=== PATIENT | female | born 1950 | race Caucasian/White ===

== ENCOUNTER 2018-08-28 14:03 | Inpatient (IN) ==
[2018-08-28] MEDS ORDERED: Sod Chloride 0.9% Inj 1,000 ML IV.SIG ONE (15:21)
--- NOTE | 2018-08-28 15:27 | ED ---
HPI General Chief complaint: Nausea/Vomiting/Diarrhea Stated complaint: Diarrhea/abd pain x 1 week Time Seen by Provider: 08/28/18 15:16 Source: patient Mode of arrival: ambulatory Limitations: no limitations History of Present Illness HPI narrative: This 68-year-old female says she has been sick for the past week. She has been having abdominal pain which is crampy in nature and somewhat migratory. It seems to affect different parts of the abdomen. She has been having loose stools. She says the last night she was up all night with diarrhea. She has been able to take fluids well. She has had a cholecystectomy in the past. There is been no unusual travel. She is not aware of any fever. There has not been any blood in the stool. She does say that she was at a birthday [place] last week and she believes another person there may be have similar symptoms that she has not had a bowel movement since this morning Related Data Home Medications Medication Instructions Recorded Confirmed No Known Home Medications 08/28/18 08/28/18 Allergies Allergy/AdvReac Type Severity Reaction Status Date / Time Sulfa (Sulfonamide Allergy Intermediate rash Verified 08/28/18 14:07 Antibiotics) Review of Systems ROS: all other systems reviewed are negative [facility] Medical History Medical History Hypertension (Acute) No active medical problems (Acute) Surgical History Surgical History Hx of section (Acute) Hx of cholecystectomy (Acute) Family History Family History Other CVA (cerebral vascular accident) Social History Social History Substance History: No History of Abuse Second Hand Smoke Exposure: No Smoking Status: Never smoker How Often Do You Have a Drink Containing Alcohol: Monthly or less Recent Travel in [facility] within the Last 8 Weeks: No Recent Out of Country Travel within the Last 8 Weeks: No Immunization History Tetanus Immunization: Unsure Exam Narrative Exam Narrative: GENERAL: Well-developed female SKIN: Focused skin assessment warm/dry. HEAD: Atraumatic. Normocephalic. EYES: Pupils equal and round. No scleral icterus. No injection or drainage. ENT: No nasal bleeding or discharge. Mucous membranes pink and moist. NECK: Trachea midline. No JVD. CARDIOVASCULAR: Regular rate and rhythm. No murmur appreciated. RESPIRATORY: No accessory muscle use. Clear to auscultation. Breath sounds equal bilaterally. GASTROINTESTINAL: Abdomen soft, there is mild diffuse tenderness without guarding or rigidity, nondistended. No abnormal masses are felt hepatic and splenic margins not palpable. MUSCULOSKELETAL: No obvious deformities. No clubbing. No cyanosis. No edema. NEUROLOGICAL: Awake and alert. No obvious cranial nerve deficits. Motor grossly within normal limits. Normal speech. PSYCHIATRIC: Appropriate mood and affect; insight and judgment normal. Course Initial Documented Vital Signs Temperature 98.7 F 08/28/18 14:07 Pulse Rate 135 H 08/28/18 14:07 Respiratory Rate 18 08/28/18 14:07 Blood Pressure 110/68 08/28/18 14:07 Pulse Oximetry 98 08/28/18 14:07 Last Documented Vital Signs Temperature 97.8 F 08/30/18 16:00 Pulse Rate 84 08/30/18 16:00 Respiratory Rate 17 08/30/18 16:00 Blood Pressure 171/100 H 08/30/18 16:00 Pulse Oximetry 100 08/30/18 16:00 Medical Decision Making MDM Narrative Medical decision making narrative: Symptoms have been ongoing for a week so workup including CT has been ordered. 1640 5 PM. Patient was seen by ED physician and signed out to me. Patient started having abdominal pain with nausea vomiting diarrhea for the past week. Patient took Gas-X without much relief. Patient was found to have hypokalemia and hypo-natremia. KCl replacement given IV n.p.o. Normal saline solution IV given. NG tube with low suction. Patient was admitted to medical service with consultation to surgical service. UA positive for WBC. Rocephin 1 g IV given. Medical Screen Exam Complete: Yes Emergency Medical Condition: Yes Differential Diagnosis Differential Diagnosis: Differential includes enteritis, colitis, diverticulitis Lab Data Lab results reviewed: Yes I reviewed the patient's lab results. Result diagrams: 08/30/18 07:42 08/30/18 17:00 Lab Results 08/28/18 08/28/18 08/28/18 Range/Units 14:50 14:50 16:00 CBC w Diff Auto diff final WBC 18.6 H (4.0-11.0) th/mm3 RBC 4.48 (4.00-5.30) mil/mm3 Hgb 14.1 (11.6-15.3) gm/dL Hct 40.8 (35.0-46.0) % MCV 90.9 (80.0-100.0) fL MCH 31.3 (27.0-34.0) pg MCHC 34.5 (32.0-36.0) % RDW 12.2 (11.6-17.2) % Plt Count 506 H (150-450) th/mm3 MPV 6.8 L (7.0-11.0) fL Neut % (Auto) 92.7 H (16.0-70.0) % Lymph % (Auto) 1.8 L (9.0-44.0) % Ashe % (Auto) 5.2 (0.0-8.0) % Eos % (Auto) 0.2 (0.0-4.0) % Baso % (Auto) 0.1 (0.0-2.0) % Neut # (Auto) 17.3 H (1.8-7.7) th/mm3 Lymph # (Auto) 0.3 L (1.0-4.8) th/mm3 Ashe # (Auto) 1.0 H (0.0-0.9) th/mm3 Eos # (Auto) 0.0 (0.0-0.4) th/mm3 Baso # (Auto) 0.0 (0.0-0.2) th/mm3 WBC Differential . Differential Comment . Sodium 113 L* (136-145) meq/L Potassium 2.2 L* (3.5-5.1) meq/L Chloride 75 L (98-107) meq/L Carbon Dioxide 25.6 (21.0-32.0) meq/L Anion Gap 12 (5-15) meq/L BUN 15 (7-18) mg/dL Creatinine 0.71 (0.50-1.00) mg/dL Estimated GFR 82 L (>89) mL/min Random Glucose 163 H (74-106) mg/dL Calcium 7.9 L (8.5-10.1) mg/dL Prot Corrected Calcium (8.5-10.1) mg/dL Phosphorus (2.5-4.9) mg/dL Magnesium (1.5-2.5) mg/dL Total Bilirubin 0.9 (0.2-1.0) mg/dL AST 25 (15-37) U/L ALT 40 (10-53) U/L Alkaline Phosphatase 95 (45-117) U/L Total Protein 7.2 (6.4-8.2) g/dL Albumin 3.1 L (3.4-5.0) g/dL Lipase 319 (73-393) U/L Urine Color Yellow (Yellw/Straw) Urine Clarity Clear (Clear) Urine pH 6.0 (5.0-8.5) Ur Specific Childs Less/equal 1.005 (1.002-1.035) Urine Protein Negative (Neg-Trace) mg/dL Urine Glucose (UA) 100 H (Negative) mg/dL Urine Ketones Trace H (Negative) mg/dL Urine Occult Blood Trace (Negative) Urine Nitrate Positive H (Negative) Urine Bilirubin Negative (Negative) Urine Urobilinogen 0.2 (Less than 2) mg/dL Ur Leukocyte Esterase Small H (Negative) Urine WBC 6-8 H (0-5) /hpf Ur Squamous Epith Cells 0-5 (0-5) /hpf Urine Bacteria Many H (None) /hpf Micro UA Comment Culture indicated Ur Microscopic Review Microscopic reviewed Urine Culture Comments Culture indicated Ur Random Sodium meq/L Stl C.difficile DNA Amp (Negative) St C. diff Tox Epid 027 (Negative) 08/28/18 08/28/18 08/29/18 Range/Units 20:18 20:18 00:30 CBC w Diff WBC (4.0-11.0) th/mm3 RBC (4.00-5.30) mil/mm3 Hgb (11.6-15.3) gm/dL Hct (35.0-46.0) % MCV (80.0-100.0) fL MCH (27.0-34.0) pg MCHC (32.0-36.0) % RDW (11.6-17.2) % Plt Count (150-450) th/mm3 MPV (7.0-11.0) fL Neut % (Auto) (16.0-70.0) % Lymph % (Auto) (9.0-44.0) % Ashe % (Auto) (0.0-8.0) % Eos % (Auto) (0.0-4.0) % Baso % (Auto) (0.0-2.0) % Neut # (Auto) (1.8-7.7) th/mm3 Lymph # (Auto) (1.0-4.8) th/mm3 Ashe # (Auto) (0.0-0.9) th/mm3 Eos # (Auto) (0.0-0.4) th/mm3 Baso # (Auto) (0.0-0.2) th/mm3 WBC Differential Differential Comment Sodium 120 L* 122 L* (136-145) meq/L Potassium 2.7 L* 2.9 L* (3.5-5.1) meq/L Chloride 84 L D 88 L (98-107) meq/L Carbon Dioxide 26.0 25.0 (21.0-32.0) meq/L Anion Gap 10 9 (5-15) meq/L BUN 10 9 (7-18) mg/dL Creatinine 0.56 0.49 L (0.50-1.00) mg/dL Estimated GFR Greater than 89 Greater than 89 (>89) mL/min Random Glucose 129 H 116 H (74-106) mg/dL Calcium 7.2 L* 7.4 L* (8.5-10.1) mg/dL Prot Corrected Calcium 7.7 L 8.1 L (8.5-10.1) mg/dL Phosphorus (2.5-4.9) mg/dL Magnesium 1.9 (1.5-2.5) mg/dL Total Bilirubin (0.2-1.0) mg/dL AST (15-37) U/L ALT (10-53) U/L Alkaline Phosphatase (45-117) U/L Total Protein 6.1 L D 5.9 L (6.4-8.2) g/dL Albumin (3.4-5.0) g/dL Lipase (73-393) U/L Urine Color (Yellw/Straw) Urine Clarity (Clear) Urine pH (5.0-8.5) Ur Specific Childs (1.002-1.035) Urine Protein (Neg-Trace) mg/dL Urine Glucose (UA) (Negative) mg/dL Urine Ketones (Negative) mg/dL Urine Occult Blood (Negative) Urine Nitrate (Negative) Urine Bilirubin (Negative) Urine Urobilinogen (Less than 2) mg/dL Ur Leukocyte Esterase (Negative) Urine WBC (0-5) /hpf Ur Squamous Epith Cells (0-5) /hpf Urine Bacteria (None) /hpf Micro UA Comment Ur Microscopic Review Urine Culture Comments Ur Random Sodium meq/L Stl C.difficile DNA Amp (Negative) St C. diff Tox Epid 027 (Negative) 08/29/18 08/29/18 08/29/18 Range/Units 01:08 07:00 07:00 CBC w Diff Auto diff final WBC 8.2 D (4.0-11.0) th/mm3 RBC 3.76 L (4.00-5.30) mil/mm3 Hgb 11.5 L D (11.6-15.3) gm/dL Hct 34.3 L (35.0-46.0) % MCV 91.3 (80.0-100.0) fL MCH 30.7 (27.0-34.0) pg MCHC 33.6 (32.0-36.0) % RDW 12.3 (11.6-17.2) % Plt Count 328 D (150-450) th/mm3 MPV 6.6 L (7.0-11.0) fL Neut % (Auto) 86.5 H (16.0-70.0) % Lymph % (Auto) 5.9 L (9.0-44.0) % Ashe % (Auto) 6.2 (0.0-8.0) % Eos % (Auto) 1.2 (0.0-4.0) % Baso % (Auto) 0.2 (0.0-2.0) % Neut # (Auto) 7.1 (1.8-7.7) th/mm3 Lymph # (Auto) 0.5 L (1.0-4.8) th/mm3 Ashe # (Auto) 0.5 (0.0-0.9) th/mm3 Eos # (Auto) 0.1 (0.0-0.4) th/mm3 Baso # (Auto) 0.0 (0.0-0.2) th/mm3 WBC Differential . Differential Comment . Sodium 125 L 125 L (136-145) meq/L Potassium 3.7 D 2.7 L* D (3.5-5.1) meq/L Chloride 92 L 90 L (98-107) meq/L Carbon Dioxide 24.5 24.4 (21.0-32.0) meq/L Anion Gap 9 11 (5-15) meq/L BUN 8 9 (7-18) mg/dL Creatinine 0.36 L 0.40 L (0.50-1.00) mg/dL Estimated GFR Greater than 89 Greater than 89 (>89) mL/min Random Glucose 115 H 104 (74-106) mg/dL Calcium 7.1 L* 7.3 L* (8.5-10.1) mg/dL Prot Corrected Calcium 7.8 L 8.1 L (8.5-10.1) mg/dL Phosphorus (2.5-4.9) mg/dL Magnesium (1.5-2.5) mg/dL Total Bilirubin 0.4 (0.2-1.0) mg/dL AST 15 (15-37) U/L ALT 28 (10-53) U/L Alkaline Phosphatase 69 (45-117) U/L Total Protein 5.7 L 5.6 L (6.4-8.2) g/dL Albumin 2.4 L D (3.4-5.0) g/dL Lipase (73-393) U/L Urine Color (Yellw/Straw) Urine Clarity (Clear) Urine pH (5.0-8.5) Ur Specific Childs (1.002-1.035) Urine Protein (Neg-Trace) mg/dL Urine Glucose (UA) (Negative) mg/dL Urine Ketones (Negative) mg/dL Urine Occult Blood (Negative) Urine Nitrate (Negative) Urine Bilirubin (Negative) Urine Urobilinogen (Less than 2) mg/dL Ur Leukocyte Esterase (Negative) Urine WBC (0-5) /hpf Ur Squamous Epith Cells (0-5) /hpf Urine Bacteria (None) /hpf Micro UA Comment Ur Microscopic Review Urine Culture Comments Ur Random Sodium meq/L Stl C.difficile DNA Amp (Negative) St C. diff Tox Epid 027 (Negative) 08/29/18 08/29/18 08/29/18 Range/Units 07:18 09:15 11:43 CBC w Diff WBC (4.0-11.0) th/mm3 RBC (4.00-5.30) mil/mm3 Hgb (11.6-15.3) gm/dL Hct (35.0-46.0) % MCV (80.0-100.0) fL MCH (27.0-34.0) pg MCHC (32.0-36.0) % RDW (11.6-17.2) % Plt Count (150-450) th/mm3 MPV (7.0-11.0) fL Neut % (Auto) (16.0-70.0) % Lymph % (Auto) (9.0-44.0) % Ashe % (Auto) (0.0-8.0) % Eos % (Auto) (0.0-4.0) % Baso % (Auto) (0.0-2.0) % Neut # (Auto) (1.8-7.7) th/mm3 Lymph # (Auto) (1.0-4.8) th/mm3 Ashe # (Auto) (0.0-0.9) th/mm3 Eos # (Auto) (0.0-0.4) th/mm3 Baso # (Auto) (0.0-0.2) th/mm3 WBC Differential Differential Comment Sodium Cancelled 125 L (136-145) meq/L Potassium Cancelled 2.9 L* (3.5-5.1) meq/L Chloride Cancelled 90 L (98-107) meq/L Carbon Dioxide Cancelled 26.8 (21.0-32.0) meq/L Anion Gap Cancelled 8 (5-15) meq/L BUN Cancelled 9 (7-18) mg/dL Creatinine Cancelled 0.40 L (0.50-1.00) mg/dL Estimated GFR Cancelled Greater than 89 (>89) mL/min Random Glucose Cancelled 102 (74-106) mg/dL Calcium Cancelled 7.6 L (8.5-10.1) mg/dL Prot Corrected Calcium (8.5-10.1) mg/dL Phosphorus 1.6 L (2.5-4.9) mg/dL Magnesium 2.3 (1.5-2.5) mg/dL Total Bilirubin (0.2-1.0) mg/dL AST (15-37) U/L ALT (10-53) U/L Alkaline Phosphatase (45-117) U/L Total Protein (6.4-8.2) g/dL Albumin (3.4-5.0) g/dL Lipase (73-393) U/L Urine Color (Yellw/Straw) Urine Clarity (Clear) Urine pH (5.0-8.5) Ur Specific Childs (1.002-1.035) Urine Protein (Neg-Trace) mg/dL Urine Glucose (UA) (Negative) mg/dL Urine Ketones (Negative) mg/dL Urine Occult Blood (Negative) Urine Nitrate (Negative) Urine Bilirubin (Negative) Urine Urobilinogen (Less than 2) mg/dL Ur Leukocyte Esterase (Negative) Urine WBC (0-5) /hpf Ur Squamous Epith Cells (0-5) /hpf Urine Bacteria (None) /hpf Micro UA Comment Ur Microscopic Review Urine Culture Comments Ur Random Sodium meq/L Stl C.difficile DNA Amp Negative (Negative) St C. diff Tox Epid 027 Negative (Negative) 08/29/18 08/29/18 08/30/18 Range/Units 15:00 19:30 07:42 CBC w Diff WBC (4.0-11.0) th/mm3 RBC (4.00-5.30) mil/mm3 Hgb (11.6-15.3) gm/dL Hct (35.0-46.0) % MCV (80.0-100.0) fL MCH (27.0-34.0) pg MCHC (32.0-36.0) % RDW (11.6-17.2) % Plt Count (150-450) th/mm3 MPV (7.0-11.0) fL Neut % (Auto) (16.0-70.0) % Lymph % (Auto) (9.0-44.0) % Ashe % (Auto) (0.0-8.0) % Eos % (Auto) (0.0-4.0) % Baso % (Auto) (0.0-2.0) % Neut # (Auto) (1.8-7.7) th/mm3 Lymph # (Auto) (1.0-4.8) th/mm3 Ashe # (Auto) (0.0-0.9) th/mm3 Eos # (Auto) (0.0-0.4) th/mm3 Baso # (Auto) (0.0-0.2) th/mm3 WBC Differential Differential Comment Sodium 125 L 124 L* (136-145) meq/L Potassium 3.5 3.5 (3.5-5.1) meq/L Chloride 92 L 92 L (98-107) meq/L Carbon Dioxide 24.4 22.9 (21.0-32.0) meq/L Anion Gap 9 9 (5-15) meq/L BUN 8 7 (7-18) mg/dL Creatinine 0.41 L 0.38 L (0.50-1.00) mg/dL Estimated GFR Greater than 89 Greater than 89 (>89) mL/min Random Glucose 111 H 111 H (74-106) mg/dL Calcium 7.6 L 7.6 L (8.5-10.1) mg/dL Prot Corrected Calcium (8.5-10.1) mg/dL Phosphorus 1.4 L (2.5-4.9) mg/dL Magnesium 2.0 (1.5-2.5) mg/dL Total Bilirubin (0.2-1.0) mg/dL AST (15-37) U/L ALT (10-53) U/L Alkaline Phosphatase (45-117) U/L Total Protein (6.4-8.2) g/dL Albumin (3.4-5.0) g/dL Lipase (73-393) U/L Urine Color (Yellw/Straw) Urine Clarity (Clear) Urine pH (5.0-8.5) Ur Specific Childs (1.002-1.035) Urine Protein (Neg-Trace) mg/dL Urine Glucose (UA) (Negative) mg/dL Urine Ketones (Negative) mg/dL Urine Occult Blood (Negative) Urine Nitrate (Negative) Urine Bilirubin (Negative) Urine Urobilinogen (Less than 2) mg/dL Ur Leukocyte Esterase (Negative) Urine WBC (0-5) /hpf Ur Squamous Epith Cells (0-5) /hpf Urine Bacteria (None) /hpf Micro UA Comment Ur Microscopic Review Urine Culture Comments Ur Random Sodium 69 meq/L Stl C.difficile DNA Amp (Negative) St C. diff Tox Epid 027 (Negative) 08/30/18 08/30/18 Range/Units 07:42 17:00 CBC w Diff Auto diff final WBC 8.0 (4.0-11.0) th/mm3 RBC 3.58 L (4.00-5.30) mil/mm3 Hgb 11.4 L (11.6-15.3) gm/dL Hct 31.6 L (35.0-46.0) % MCV 88.3 (80.0-100.0) fL MCH 31.7 (27.0-34.0) pg MCHC 35.9 (32.0-36.0) % RDW 12.6 (11.6-17.2) % Plt Count 332 (150-450) th/mm3 MPV 6.5 L (7.0-11.0) fL Neut % (Auto) 79.7 H (16.0-70.0) % Lymph % (Auto) 7.0 L (9.0-44.0) % Ashe % (Auto) 10.0 H (0.0-8.0) % Eos % (Auto) 1.5 (0.0-4.0) % Baso % (Auto) 1.8 (0.0-2.0) % Neut # (Auto) 6.4 (1.8-7.7) th/mm3 Lymph # (Auto) 0.6 L (1.0-4.8) th/mm3 Ashe # (Auto) 0.8 (0.0-0.9) th/mm3 Eos # (Auto) 0.1 (0.0-0.4) th/mm3 Baso # (Auto) 0.1 (0.0-0.2) th/mm3 WBC Differential . Differential Comment . Sodium 130 L (136-145) meq/L Potassium 3.9 (3.5-5.1) meq/L Chloride 95 L (98-107) meq/L Carbon Dioxide 23.6 (21.0-32.0) meq/L Anion Gap 11 (5-15) meq/L BUN 9 (7-18) mg/dL Creatinine 0.42 L (0.50-1.00) mg/dL Estimated GFR Greater than 89 (>89) mL/min Random Glucose 132 H (74-106) mg/dL Calcium 8.1 L (8.5-10.1) mg/dL Prot Corrected Calcium (8.5-10.1) mg/dL Phosphorus (2.5-4.9) mg/dL Magnesium (1.5-2.5) mg/dL Total Bilirubin (0.2-1.0) mg/dL AST (15-37) U/L ALT (10-53) U/L Alkaline Phosphatase (45-117) U/L Total Protein (6.4-8.2) g/dL Albumin (3.4-5.0) g/dL Lipase (73-393) U/L Urine Color (Yellw/Straw) Urine Clarity (Clear) Urine pH (5.0-8.5) Ur Specific Childs (1.002-1.035) Urine Protein (Neg-Trace) mg/dL Urine Glucose (UA) (Negative) mg/dL Urine Ketones (Negative) mg/dL Urine Occult Blood (Negative) Urine Nitrate (Negative) Urine Bilirubin (Negative) Urine Urobilinogen (Less than 2) mg/dL Ur Leukocyte Esterase (Negative) Urine WBC (0-5) /hpf Ur Squamous Epith Cells (0-5) /hpf Urine Bacteria (None) /hpf Micro UA Comment Ur Microscopic Review Urine Culture Comments Ur Random Sodium meq/L Stl C.difficile DNA Amp (Negative) St C. diff Tox Epid 027 (Negative) Imaging Data Radiologist's impression: Abdomen/Pelvis CT 08/28/18 15:21 CONCLUSION: 1. Abnormal bowel gas pattern of concern for distal small bowel obstruction. No transition zone is identified. 2. Mild to moderate diverticulosis. 3. Status post cholecystectomy. 4. Small simple cysts in the kidneys. Chest X-Ray 08/29/18 16:49 CONCLUSION: No acute cardiopulmonary disease. Chest X-Ray 08/30/18 00:00 CONCLUSION: Nasogastric tube is not across the GE junction. Tube appears to be the proximal esophagus. Small Bowel X-Ray 08/30/18 00:00 CONCLUSION: Persistent abnormally dilated small bowel and the contrast did not reach the colon by 8 hours. These findings along with the findings on recent CT are characteristic of the distal small bowel obstruction. One could consider obtaining additional follow-up x-ray tomorrow morning to evaluate for progression of contrast into the colon. Discharge Plan Discharge Disposition Patient Disposition: 30 Still Patient Discharge Details Diagnosis: Small bowel obstruction, Acute hyponatremia, Acute hypokalemia, Acute UTI Physicians Team ED Provider: Shaheen Bettencourt Primary Care Provider: Primary Care Physici,Shagufta Attending Provider: Kevan Ashby Other Providers: Elias Car Status ED Status: Left Department Discharge Information Discharge Date/Time: 08/29/18 01:27
[2018-08-28] MEDS ORDERED: Sod Chloride 0.9% Inj 1,000 ML IV.CONT SCH (15:30)
[2018-08-28 15:45] LABS: Baso % (Auto) 0.1 % (0.0-2.0); Eos % (Auto) 0.2 % (0.0-4.0); Hematocrit 40.8 % (35.0-46.0); Hemoglobin 14.1 gm/dL (11.6-15.3); Lymph # (Auto) 0.3 th/mm3 (1.0-4.8); Lymph % (Auto) 1.8 % (9.0-44.0); Mean Corpuscular HGB Conc 34.5 % (32.0-36.0); Mean Corpuscular Hemoglobin 31.3 pg (27.0-34.0); Mean Corpuscular Volume 90.9 fL (80.0-100.0); Mean Platelet Volume 6.8 fL (7.0-11.0); Mono % (Auto) 5.2 % (0.0-8.0); Neut # (Auto) 17.3 th/mm3 (1.8-7.7); Neut % (Auto) 92.7 % (16.0-70.0); Platelet Count 506 th/mm3 (150-450); Red Blood Count 4.48 mil/mm3 (4.00-5.30); Red Cell Distribution Width 12.2 % (11.6-17.2); White Blood Count 18.6 th/mm3 (4.0-11.0)
[2018-08-28 16:14] LABS: Bilirubin,Urine Negative (Negative); Clarity,Urine Clear (Clear); Color,Urine Yellow (Yellw/Straw); Glucose,Urine (UA) 100 mg/dL (Negative); Leukocyte Esterase,Urine Small (Negative); Nitrite,Urine Positive (Negative); Specific Gravity,Urine Less/Equal 1.005 (1.002-1.035); Urobilinogen,Urine 0.2 mg/dL (Less than 2)
[2018-08-28 16:22] LABS: Alanine Aminotransferase 40 U/L (10-53); Albumin 3.1 g/dL (3.4-5.0); Alkaline Phosphatase 95 U/L (45-117); Anion Gap 12 meq/L (5-15); Aspartate Aminotransferase 25 U/L (15-37); Blood Urea Nitrogen 15 mg/dL (7-18); Calcium 7.9 mg/dL (8.5-10.1); Carbon Dioxide 25.6 meq/L (21.0-32.0); Chloride 75 meq/L (98-107); Glomerular Filtration Rate 82 mL/min (>89); Glucose,Random 163 mg/dL (74-106); Lipase 319 U/L (73-393); Total Protein 7.2 g/dL (6.4-8.2)
[2018-08-28 16:25] LABS: Sodium 113 meq/L (136-145)
[2018-08-28 16:26] LABS: Potassium 2.2 meq/L (3.5-5.1)
[2018-08-28] MEDS: Potassium Chlor 20 mEq Premix 20 MEQ/100 ML PIGGYBACK IV.SIG SCH ×2 (16:30→22:52)
[2018-08-28 16:39] LABS: Bacteria,Urine Many /hpf; Squamous Epithelial Cell,Urine 0-5 /hpf (0-5)
--- NOTE | 2018-08-28 17:43 | CT ---
EXAM DATE: 08/28/2018 5:35 PM EDT AGE/SEX: 68 years / Female INDICATIONS: Diffuse abdominal pain for one week. CLINICAL DATA: This is the patient's initial encounter. Patient reports that signs and symptoms have been present for 1 week and indicates a pain score of 7/10. MEDICAL/SURGICAL HISTORY: None. Cholecystectomy. section. ORAL CONTRAST: No oral contrast ingested. RADIATION DOSE: 7.85 CTDI (mGy) COMPARISON: No prior exams available for comparison. TECHNIQUE: Multiple contiguous axial images were obtained through the abdomen and pelvis following b olus infusion of 100 ml Omnipaque 350 (iohexol) nonionic water-soluble contrast as a single exam do se. No oral contrast ingested. Using automated exposure control and adjustment of the mA and/or kV a ccording to patient size, radiation dose was kept as low as reasonably achievable to obtain optimal d iagnostic quality images. DICOM format image data is available electronically for review and compari son. FINDINGS: Lower Lungs: The visualized lower lungs are clear. Liver: The liver has a homogeneous density without space-occupying lesion. There is no dilation of th e biliary tree. The patient is status post cholecystectomy. Spleen: Homogeneous density without enlargement. Pancreas: Unremarkable without mass or calcification. Kidneys: Normal in size and shape. No evidence of solid mass or hydronephrosis. There are bilateral small cysts. Adrenal Glands: Unremarkable. Aorta: The aorta and proximal iliac vessels are grossly unremarkable without aneurysmal dilation. Bowel/Mesentery: Abnormal bowel gas pattern of borderline dilated air-containing small bowel with mu ltiple air-fluid levels. The distal and mid colon are decompressed. Fluid is present in the right jose juan e of the colon. There is no focal transition zone identified. There is no distinct mass. There is no free air. There is a normal appendix. Diverticula are present in the sigmoid colon. Abdominal Wall: Intact. Retroperitoneum: No evidence of adenopathy in the retrocrural, para-aortic, or deep pelvic regions. Bladder: Contours are smooth. Reproductive Organs: No abnormal masses or calcifications seen. Inguinal: The inguinal region is unremarkable without evidence of adenopathy. Bony Structures: Unremarkable. CONCLUSION: 1. Abnormal bowel gas pattern of concern for distal small bowel obstruction. No transition zone is i dentified. 2. Mild to moderate diverticulosis. 3. Status post cholecystectomy. 4. Small simple cysts in the kidneys. Electronically signed by: Bowen Arambula MD 08/28/2018 5:41 PM EDT
[2018-08-28] MEDS ORDERED: Pantoprazole Inj 40 MG Vial IV.PUSH ONE (18:13)
[2018-08-28] MEDS ORDERED: Mag Sulf 1 gm/100 ml Premix 100 ML IV.SIG ONE (19:54)
[2018-08-28] MEDS ORDERED: Bisacodyl 10 MG Supp RECTAL PRN (19:54)
[2018-08-28] MEDS ORDERED: Senna/Docusate Sodium 8.6/50 MG Tablet PO SCH (21:00)
[2018-08-28 21:35] LABS: Anion Gap 10 meq/L (5-15); Blood Urea Nitrogen 10 mg/dL (7-18); Calcium 7.2 mg/dL (8.5-10.1); Chloride 84 meq/L (98-107); Glomerular Filtration Rate Greater Than 89 mL/min (>89); Glucose,Random 129 mg/dL (74-106)
[2018-08-28 21:37] LABS: Sodium 120 meq/L (136-145)
[2018-08-28 21:38] LABS: Potassium 2.7 meq/L (3.5-5.1)
[2018-08-28 21:53] LABS: Total Protein 6.1 g/dL (6.4-8.2)
[2018-08-28] MEDS: Sod Chloride 0.9% Inj 1,000 ML IV.CONT SCH (22:53)
[2018-08-29 02:00] LABS: Anion Gap 9 meq/L (5-15); Blood Urea Nitrogen 9 mg/dL (7-18); Calcium 7.4 mg/dL (8.5-10.1); Chloride 88 meq/L (98-107); Glomerular Filtration Rate Greater Than 89 mL/min (>89); Glucose,Random 116 mg/dL (74-106)
[2018-08-29 02:02] LABS: Sodium 122 meq/L (136-145)
[2018-08-29 02:03] LABS: Potassium 2.9 meq/L (3.5-5.1)
[2018-08-29 03:37] LABS: Total Protein 5.9 g/dL (6.4-8.2)
[2018-08-29] MEDS ORDERED: KCL 20 mEq/NACL 0.45% Inj 1,000 ML IV.CONT SCH (04:30)
[2018-08-29] MEDS ORDERED: Morphine Sulfate Inj 2 MG/ML Vial IV.PUSH ONE (05:32)
[2018-08-29] MEDS ORDERED: Sodium Chloride 0.9% 2 ML Flush PRN IV.FLUSH (05:47)
[2018-08-29] MEDS: Sod Chloride 0.9% Inj 1,000 ML IV.CONT SCH (06:31)
[2018-08-29 07:33] LABS: Baso % (Auto) 0.2 % (0.0-2.0); Eos # (Auto) 0.1 th/mm3 (0.0-0.4); Eos % (Auto) 1.2 % (0.0-4.0); Hematocrit 34.3 % (35.0-46.0); Hemoglobin 11.5 gm/dL (11.6-15.3); Lymph # (Auto) 0.5 th/mm3 (1.0-4.8); Lymph % (Auto) 5.9 % (9.0-44.0); Mean Corpuscular HGB Conc 33.6 % (32.0-36.0); Mean Corpuscular Hemoglobin 30.7 pg (27.0-34.0); Mean Corpuscular Volume 91.3 fL (80.0-100.0); Mean Platelet Volume 6.6 fL (7.0-11.0); Mono # (Auto) 0.5 th/mm3 (0.0-0.9); Mono % (Auto) 6.2 % (0.0-8.0); Neut # (Auto) 7.1 th/mm3 (1.8-7.7); Neut % (Auto) 86.5 % (16.0-70.0); Platelet Count 328 th/mm3 (150-450); Red Blood Count 3.76 mil/mm3 (4.00-5.30); Red Cell Distribution Width 12.3 % (11.6-17.2); White Blood Count 8.2 th/mm3 (4.0-11.0)
[2018-08-29 07:51] LABS: Alanine Aminotransferase 28 U/L (10-53); Albumin 2.4 g/dL (3.4-5.0); Alkaline Phosphatase 69 U/L (45-117); Anion Gap 11 meq/L (5-15); Aspartate Aminotransferase 15 U/L (15-37); Blood Urea Nitrogen 9 mg/dL (7-18); Calcium 7.3 mg/dL (8.5-10.1); Carbon Dioxide 24.4 meq/L (21.0-32.0); Chloride 90 meq/L (98-107); Glomerular Filtration Rate Greater Than 89 mL/min (>89); Glucose,Random 104 mg/dL (74-106); Sodium 125 meq/L (136-145); Total Protein 5.6 g/dL (6.4-8.2)
[2018-08-29 07:55] LABS: Potassium 2.7 meq/L (3.5-5.1)
[2018-08-29] MEDS ORDERED: Potassium Chlor 20 mEq Premix 20 MEQ/100 ML PIGGYBACK IV.SIG ONE (09:00)
[2018-08-29] MEDS ORDERED: Influenza (Quadrivalent) Vaccine 0.5 ML Syringe IM ONE (09:00)
--- NOTE | 2018-08-29 09:13 | P.HP ---
History of Present Illness Primary Care Physician: No Primary Care Physician Chief Complaint: Abdominal pain History of Present Illness: This is a 68-year-old female with a history of hypertension. She takes half of her 's medication which she cannot recall the name. Anyway she came to the emergency department because of GI symptoms for 1 week. She reports of nausea, vomiting and crampy abdominal pain associated with nonbloody and nonmucoid stools. Denies sick contacts, recent antibiotic use, well water and seafood ingestion. No fever or chills. In the emergency room. CT scan showed distal SBO. Sodium was also severely low at 113 and a potassium of 2.2. Overnight she received NS infusion and potassium supplementation. Current sodium level is 125 and potassium of 2.7. All other systems reviewed negative Inpatient Certification: I certify that the inpatient services were ordered in accordance with Medicare regulations governing the order. This includes certification that hospital inpatient services are reasonable and necessary and in the case of services not specified as inpatient-only under 42 CFR 419.22(n), that they are appropriately provided as inpatient services in accordance to with the 2-midnight benchmark under 43 CFR 412.3(e) Estimated Total Length of Stay (Days): 3 Plans for Post Hospital Care: Home Review of Systems All other systems reviewed negative except as stated in HPI PMFSH - History History Provided By: Patient - Medical History Medical History: Medical History (Last Updated 08/29/18 @ 09:09 by Kevan Ashby MD) Hypertension No active medical problems - Surgical History Surgical History: Surgical History (Last Reviewed 08/29/18 @ 09:09 by Kevan Ashby MD) Hx of section Hx of cholecystectomy - Family History Family History: Family History (Last Updated 08/29/18 @ 09:09 by Kevan Ashby MD) Other CVA (cerebral vascular accident) - Social History I have reviewed the patient's Social History: Yes - Tobacco History Second Hand Smoke Exposure: No Smoking Status: Never smoker - Alcohol History How Often Do You Have a Drink Containing Alcohol: Monthly or less - Substance Use History Substance History: No History of Abuse - Travel History Recent Travel in the [place] Within the Last 8 Weeks: No Recent Travel Out of the Country Within the Last 8 Weeks: No - Immunization History Tetanus Immunization: <5 Years Hx Influenza Vaccine This Season: No Medications and Allergies Active Medications: Active Medications Al Hydroxide/Mg Hydroxide (Milk Of Isabel Ibanez) 30 ml PO Q12H PRN PRN Reason: Mild Constipation Bisacodyl (Dulcolax Supp) 10 mg RECTAL DAILY PRN PRN Reason: SEVERE CONSITIPATION Ceftriaxone Sodium 1,000 mg/ (Sodium Chloride) 100 mls @ 200 mls/hr IV.SIG Q24H ISABELLE Potassium Chloride (Kcl 20 Meq Premix Inj) 20 meq in 100 mls @ 50 mls/hr IV.SIG Q2H ISABELLE Stop: 08/29/18 12:59 Potassium Chloride 40 meq/ (Dextrose) 1,020 mls @ 100 mls/hr IV.CONT .[id number] ISABELLE Lactulose (Lactulose Liq) 30 ml PO DAILY PRN PRN Reason: SEVERE CONSITIPATION Ondansetron HCl (Zofran Inj) 4 mg IV.PUSH Q6H PRN PRN Reason: NAUSEA OR VOMITING Pantoprazole Sodium (Protonix Inj) 40 mg IV.PUSH Q24H ISABELLE Sennosides (Senokot) 17.2 mg PO Q12H PRN PRN Reason: Moderate Constipation Sodium Chloride (Ns Flush) 2 ml IV.FLUSH BID ISABELLE Sodium Chloride (Ns Flush) 2 ml IV.FLUSH PRN PRN PRN Reason: FLUSH AFTER USING IV ACCESS Allergies Allergy/AdvReac Type Severity Reaction Status Date / Time Sulfa (Sulfonamide Allergy Intermediate rash Verified 08/28/18 14:07 Antibiotics) Home Medications Medication Instructions Recorded Confirmed Type No Known Home Medications 08/28/18 08/28/18 History Exam Vital signs: Vital Signs 08/28/18 14:07 08/28/18 14:56 08/28/18 16:08 Temperature 98.7 F Pulse Rate 135 H 109 H 85 Respiratory Rate 18 18 18 Blood Pressure 110/68 102/66 106/61 Pulse Oximetry 98 98 98 08/28/18 18:53 08/28/18 21:00 08/28/18 23:10 Temperature Pulse Rate 103 H 88 92 H Respiratory Rate 20 18 18 Blood Pressure 113/67 110/74 113/68 Pulse Oximetry 97 96 97 08/29/18 01:26 08/29/18 01:39 08/29/18 04:00 Temperature 98 F 97.3 F L Pulse Rate 90 106 H 100 H Respiratory Rate 18 20 20 Blood Pressure 110/66 130/64 124/68 Pulse Oximetry 97 96 98 08/29/18 08:00 Temperature 97.4 F L Pulse Rate 95 H Respiratory Rate 22 Blood Pressure 119/64 Pulse Oximetry 99 Intake & Output 08/28/18 08/29/18 08/29/18 18:59 06:59 18:59 Intake Total 1200 / 1200 1400 / 1400 200 / 200 Output Total 120 / 120 Balance 1200 / 1200 1400 / 1400 80 / 80 Weight 61.4 kg 60.7 kg Intake: IV 1200 / 1200 1400 / 1400 200 / 200 NS + KCl 20 mEq Inj 1,000 ML @ 1000 / 1000 200 / 200 125 mls/hr IV.CONT .Q8H ISABELLE Rx# :[id number] NS Inj 1,000 ML @ 125 mls/hr IV 200 / 200 .CONT .Q8H ISABELLE Rx#:[id number] Magnesium Sulfate 1 gm/D5W 100 100 / 100 ml Premix 100 ML @ 100 mls/hr IV.SIG ONCE ONE Rx#:[id number] KCl 20 mEq Premix Inj 20 meq In 100 / 100 100 ml @ 50 mls/hr IV.SIG Q2H ISABELLE Rx#:[id number] NS Inj 1,000 ML @ Wide Open IV. 1000 / 1000 SIG BOLUS ONE Rx#:[id number] Rocephin Inj 1,000 MG In NS Inj 100 / 100 100 ML @ 200 mls/hr IV.SIG ONCE ONE Rx#:[id number] Oral 0 / 0 0 / 0 Output: Urine 120 / 120 Other: # Voids 1 Date of Last Bowel Movement 08/28/18 Weight On Admission 61.7 kg Narrative: GENERAL: Well-developed, well-nourished in no distress SKIN: Warm and dry. HEAD: Atraumatic. Normocephalic. EYES: Pupils equal and round. No scleral icterus. No injection or drainage. ENT: No nasal bleeding or discharge. Dry oral mucosa. NGT in place NECK: Trachea midline. No JVD. CARDIOVASCULAR: Regular rate and rhythm. RESPIRATORY: No accessory muscle use. Clear to auscultation. Breath sounds equal bilaterally. GASTROINTESTINAL: Abdomen soft, slightly tender epigastric area, nondistended. MUSCULOSKELETAL: Extremities without clubbing, cyanosis, or edema. No obvious deformities. NEUROLOGICAL: Awake and alert. No obvious cranial nerve deficits. Motor grossly within normal limits. Five out of 5 muscle strength in the arms and legs. Normal speech. PSYCHIATRIC: Appropriate mood and affect; insight and judgment normal. Results - Labs CBC & Chem 7: 08/29/18 07:00 08/29/18 07:00 Labs: Laboratory Results - last 24 hr 08/28/18 08/28/18 08/28/18 14:50 14:50 16:00 CBC w Diff Auto diff final WBC 18.6 H RBC 4.48 Hgb 14.1 Hct 40.8 MCV 90.9 MCH 31.3 MCHC 34.5 RDW 12.2 Plt Count 506 H MPV 6.8 L Neut % (Auto) 92.7 H Lymph % (Auto) 1.8 L [place] % (Auto) 5.2 Eos % (Auto) 0.2 Baso % (Auto) 0.1 Neut # (Auto) 17.3 H Lymph # (Auto) 0.3 L [place] # (Auto) 1.0 H Eos # (Auto) 0.0 Baso # (Auto) 0.0 WBC Differential . Differential Comment . Sodium 113 L* Potassium 2.2 L* Chloride 75 L Carbon Dioxide 25.6 Anion Gap 12 BUN 15 Creatinine 0.71 Estimated GFR 82 L Random Glucose 163 H Calcium 7.9 L Prot Corrected Calcium Magnesium Total Bilirubin 0.9 AST 25 ALT 40 Alkaline Phosphatase 95 Total Protein 7.2 Albumin 3.1 L Lipase 319 Urine Color Yellow Urine Clarity Clear Urine pH 6.0 Ur Specific [place] Less/equal 1.005 Urine Protein Negative Urine Glucose (UA) 100 H Urine Ketones Trace H Urine Occult Blood Trace Urine Nitrate Positive H Urine Bilirubin Negative Urine Urobilinogen 0.2 Ur Leukocyte Esterase Small H Urine WBC 6-8 H Ur Squamous Epith Cells 0-5 Urine Bacteria Many H Micro UA Comment Culture indicated Ur Microscopic Review Microscopic reviewed Urine Culture Comments Culture indicated 08/28/18 08/28/18 08/29/18 20:18 20:18 00:30 CBC w Diff WBC RBC Hgb Hct MCV MCH MCHC RDW Plt Count MPV Neut % (Auto) Lymph % (Auto) [place] % (Auto) Eos % (Auto) Baso % (Auto) Neut # (Auto) Lymph # (Auto) [place] # (Auto) Eos # (Auto) Baso # (Auto) WBC Differential Differential Comment Sodium 120 L* 122 L* Potassium 2.7 L* 2.9 L* Chloride 84 L D 88 L Carbon Dioxide 26.0 25.0 Anion Gap 10 9 BUN 10 9 Creatinine 0.56 0.49 L Estimated GFR Greater than 89 Greater than 89 Random Glucose 129 H 116 H Calcium 7.2 L* 7.4 L* Prot Corrected Calcium 7.7 L 8.1 L Magnesium 1.9 Total Bilirubin AST ALT Alkaline Phosphatase Total Protein 6.1 L D 5.9 L Albumin Lipase Urine Color Urine Clarity Urine pH Ur Specific [place] Urine Protein Urine Glucose (UA) Urine Ketones Urine Occult Blood Urine Nitrate Urine Bilirubin Urine Urobilinogen Ur Leukocyte Esterase Urine WBC Ur Squamous Epith Cells Urine Bacteria Micro UA Comment Ur Microscopic Review Urine Culture Comments 08/29/18 08/29/18 08/29/18 07:00 07:00 07:18 CBC w Diff Auto diff final WBC 8.2 D RBC 3.76 L Hgb 11.5 L D Hct 34.3 L MCV 91.3 MCH 30.7 MCHC 33.6 RDW 12.3 Plt Count 328 D MPV 6.6 L Neut % (Auto) 86.5 H Lymph % (Auto) 5.9 L [place] % (Auto) 6.2 Eos % (Auto) 1.2 Baso % (Auto) 0.2 Neut # (Auto) 7.1 Lymph # (Auto) 0.5 L [place] # (Auto) 0.5 Eos # (Auto) 0.1 Baso # (Auto) 0.0 WBC Differential . Differential Comment . Sodium 125 L Cancelled Potassium 2.7 L* Cancelled Chloride 90 L Cancelled Carbon Dioxide 24.4 Cancelled Anion Gap 11 Cancelled BUN 9 Cancelled Creatinine 0.40 L Cancelled Estimated GFR Greater than 89 Cancelled Random Glucose 104 Cancelled Calcium 7.3 L* Cancelled Prot Corrected Calcium 8.1 L Magnesium 2.3 Total Bilirubin 0.4 AST 15 ALT 28 Alkaline Phosphatase 69 Total Protein 5.6 L Albumin 2.4 L D Lipase Urine Color Urine Clarity Urine pH Ur Specific [place] Urine Protein Urine Glucose (UA) Urine Ketones Urine Occult Blood Urine Nitrate Urine Bilirubin Urine Urobilinogen Ur Leukocyte Esterase Urine WBC Ur Squamous Epith Cells Urine Bacteria Micro UA Comment Ur Microscopic Review Urine Culture Comments - Imaging Impressions Abdomen/Pelvis CT 08/28/18 15:21 CONCLUSION: 1. Abnormal bowel gas pattern of concern for distal small bowel obstruction. No transition zone is identified. 2. Mild to moderate diverticulosis. 3. Status post cholecystectomy. 4. Small simple cysts in the kidneys. Caprini VTE Risk Assessment Caprini VTE Risk Assessment: Moderate/High Risk (score >= 2) Caprini Risk Assessment Model: Point Value = 1 Point Value = 2 Point Value = 3 Point Value = 5 Age 41-60 Minor surgery BMI > 25 kg/m2 Swollen legs Varicose veins or History of unexplained or recurrent spontaneous Oral contraceptives or hormone replacement Sepsis (< 1 month) Serious lung disease, including pneumonia (< 1 month) Abnormal pulmonary function Acute myocardial infarction Congestive heart failure (< 1 month) History of inflammatory bowel disease Medical patient at bed rest Age 61-74 Arthroscopic surgery Major open surgery (> 45 min) Laparoscopic surgery (> 45 min) Malignancy Confined to bed (> 72 hours) Immobilizing plaster cast Central venous access Age >= 75 History of VTE Family history of VTE Factor V Leiden Prothrombin [id number] Lupus anticoagulant Anticardiolipin antibodies Elevated serum homocysteine Heparin-induced thrombocytopenia Other congenital or acquired thrombophilia Stroke (< 1 month) Elective arthroplasty Hip, pelvis, or leg fracture Acute spinal cord injury (< 1 month) Prophylaxis Regimen: Total Risk Factor Score Risk Level Prophylaxis Regimen 0-1 Low Early ambulation 2 Moderate Order ONE of the following: *Sequential Compression Device (SCD) *Heparin 5000 units SQ BID 3-4 Higher Order ONE of the following medications: *Heparin 5000 units SQ TID *Enoxaparin/Lovenox 40 mg SQ daily (WT < 150 kg, CrCl > 30 mL/min) *Enoxaparin/Lovenox 30 mg SQ daily (WT < 150 kg, CrCl > 10-29 mL/min) *Enoxaparin/Lovenox 30 mg SQ BID (WT < 150 kg, CrCl > 30 mL/min) AND/OR *Sequential Compression Device (SCD) 5 or more Highest Order ONE of the following medications: *Heparin 5000 units SQ TID (Preferred with Epidurals) *Enoxaparin/Lovenox 40 mg SQ daily (WT < 150 kg, CrCl > 30 mL/min) *Enoxaparin/Lovenox 30 mg SQ daily (WT < 150 kg, CrCl > 10-29 mL/min) *Enoxaparin/Lovenox 30 mg SQ BID (WT < 150 kg, CrCl > 30 mL/min) AND *Sequential Compression Device (SCD) Assessment and Plan - Plan This is a 68-year-old female with a history of hypertension. She presented with nausea, vomiting, diarrhea and abdominal pain. CT scan showed distal SBO. Also with significant electrolyte abnormalities with sodium of 113 and potassium of 2.2. Distal SBO. Keep n.p.o., continue NGT and fluid hydration. General surgery has been consulted. GI prophylaxis with PPI Severe hyponatremia likely secondary to GI loss. Obtain urine sodium. It is improved up to 125 but I am concerned of rapid correction. Will switch to D5 water and monitor sodium level closely to keep sodium level between 120-122 in the next 24 hours. We will also give desmopressin. Seizure precautions Severe hypokalemia also from GI loss. Magnesium within normal limits. Improving we will continue aggressive replacement with 60 mg IV potassium today and repeat level. Monitor on telemetry. Check phosphorus level Abnormal urinalysis. She meets criteria for sepsis. Continue Rocephin and follow cultures. We will also order stool studies DVT prophylaxis with SCD and early ambulation. Pharmacological prophylaxis if okay with general surgery
[2018-08-29] MEDS: Sodium Chloride 0.9% 2 ML Flush BID IV.FLUSH SCH ×2 (09:35→20:04)
[2018-08-29] MEDS: Potassium Chlor 20 mEq Premix 20 MEQ/100 ML PIGGYBACK IV.SIG SCH ×2 (09:35→13:25)
[2018-08-29] MEDS ORDERED: Desmopressin Inj 4 MCG/ML Ampul SQ ONE (10:00)
[2018-08-29 12:55] LABS: Anion Gap 8 meq/L (5-15); Blood Urea Nitrogen 9 mg/dL (7-18); Calcium 7.6 mg/dL (8.5-10.1); Carbon Dioxide 26.8 meq/L (21.0-32.0); Chloride 90 meq/L (98-107); Glomerular Filtration Rate Greater Than 89 mL/min (>89); Glucose,Random 102 mg/dL (74-106); Phosphorus 1.6 mg/dL (2.5-4.9); Sodium 125 meq/L (136-145)
[2018-08-29 13:11] LABS: Potassium 2.9 meq/L (3.5-5.1)
[2018-08-29] MEDS ORDERED: Naloxone Inj 0.4 MG/ML Vial IV.PUSH PRN (13:15)
[2018-08-29] MEDS ORDERED: Potassium Phosphate Inj 30 MMOL in Sodium Chlor 0.9% Inj 250 ML IV.SIG ONE (14:00)
[2018-08-29] MEDS: Potassium Chloride Inj 40 MEQ in Dextrose 5% in Water Inj 1,000 ML IV.CONT SCH ×2 (14:50)
[2018-08-29] MEDS: Morphine Sulfate Inj 2 MG/ML Vial IV.PUSH PRN (14:56)
--- NOTE | 2018-08-29 14:58 | ECG ---
Date Performed: 08/28/2018 Time Performed: 18:38:46 PTAGE: 68 years EKG: SINUS TACHYCARDIA POSSIBLE LEFT ATRIAL ENLARGEMENT MARKED LEFT AXIS DEVIATION PATTERN CONSI STENT WITH PULMONARY DISEASE MODERATE INTRAVENTRICULAR CONDUCTION DELAY MINIMAL ST DEPRESSION When co mpared to previous tracing, sinus rate is faster. ABNORMAL ECG PREVIOUS TRACING : 10/13/2008 20.03 DOCTOR: Vik Tavarez Interpretating Date/Time 08/29/2018 14:58:13
--- NOTE | 2018-08-29 17:42 | XR ---
EXAM DATE: 08/29/2018 5:36 PM EDT AGE/SEX: 68 years / Female INDICATIONS: NG tube placement. CLINICAL DATA: This is the patient's initial encounter. Patient reports that signs and symptoms have been present for 1 day and indicates a pain score of 4/10. MEDICAL/SURGICAL HISTORY: None. Cholecystectomy. section. COMPARISON: . FINDINGS: NG tube is present with tip in the stomach. The lungs are clear without infiltrate, nodule, or mass. There is no appreciable pleural effusion for technique. Heart and mediastinum are unremarkable. CONCLUSION: No acute cardiopulmonary disease. Electronically signed by: Javan Vargas MD 08/29/2018 5:41 PM EDT
--- NOTE | 2018-08-29 18:07 | P.CONGS ---
[facility] Gen Surgery Consult Note Consult date: 08/29/18 Narrative: 68 yo F with crampy abdominal pain associated with nausea, occasional vomiting, and nonbloody diarrhea for approximately 1 week. She has not had diarrhea since admission yesterday. She does continue to pass flatus. Past surgical history includes laparoscopic cholecystectomy and 2 C-sections via lower midline incision. She was noted in the emergency department to have leukocytosis as well as severe metabolic disturbance with hyponatremia and hypokalemia. CT abdomen pelvis is concerning for small bowel obstruction although there is no transition point identified. NG tube is in place but output has not been recorded. Review of Systems All other systems reviewed negative except as stated in [facility] PMFSH - History History Provided By: Patient - Medical History Medical History: Medical History (Last Updated 08/29/18 @ 09:09 by Kevan Ashby MD) Hypertension No active medical problems - Surgical History Surgical History: Surgical History (Last Reviewed 08/29/18 @ 09:09 by Kevan Ashby MD) Hx of section Hx of cholecystectomy - Family History Family History: Family History (Last Updated 08/29/18 @ 09:09 by Kevan Ashby MD) Other CVA (cerebral vascular accident) - Tobacco History Second Hand Smoke Exposure: No Smoking Status: Never smoker - Alcohol History How Often Do You Have a Drink Containing Alcohol: Monthly or less - Substance Use History Substance History: No History of Abuse - Travel History Recent Travel in the [place] Within the Last 8 Weeks: No Recent Travel Out of the Country Within the Last 8 Weeks: No - Immunization History Tetanus Immunization: <5 Years Hx Influenza Vaccine This Season: No Medications and Allergies Active Medications: Active Medications Al Hydroxide/Mg Hydroxide (Milk Of Isabel Ibanez) 30 ml PO Q12H PRN PRN Reason: Mild Constipation Bisacodyl (Dulcolax Supp) 10 mg RECTAL DAILY PRN PRN Reason: SEVERE CONSITIPATION Desmopressin Acetate (Ddavp Inj) 2 mcg SQ Q6HR ISABELLE Stop: 08/30/18 17:59 Ceftriaxone Sodium 1,000 mg/ (Sodium Chloride) 100 mls @ 200 mls/hr IV.SIG Q24H ISABELLE Last Infusion: 08/29/18 13:22 Dose: Infused Potassium Chloride 40 meq/ (Dextrose) 1,020 mls @ 100 mls/hr IV.CONT .[id number] ISABELLE Last Admin: 08/29/18 14:50 Dose: 100 mls/hr Metronidazole/Sodium Chloride (Flagyl 500 Mg Inj) 100 mls @ 100 mls/hr IV.SIG Q6H ISABELLE Last Admin: 08/29/18 17:04 Dose: 100 mls/hr Potassium Phosphate 30 mmol/ (Sodium Chloride) 260 mls @ 43.333 mls/hr IV.SIG ONCE ONE Stop: 08/29/18 19:59 Last Admin: 08/29/18 17:03 Dose: 43.33 mls/hr Lactulose (Lactulose Liq) 30 ml PO DAILY PRN PRN Reason: SEVERE CONSITIPATION Morphine Sulfate (Morphine Inj) 2 mg IV.PUSH Q3H PRN PRN Reason: PAIN SCALE 1 TO 10 Last Admin: 08/29/18 14:56 Dose: 2 mg Naloxone HCl (Narcan Inj) 0.4 mg IV.PUSH UNSCH PRN PRN Reason: SEE LABEL COMMENTS Ondansetron HCl (Zofran Inj) 4 mg IV.PUSH Q6H PRN PRN Reason: NAUSEA OR VOMITING Pantoprazole Sodium (Protonix Inj) 40 mg IV.PUSH Q24H ISABELLE Sennosides (Senokot) 17.2 mg PO Q12H PRN PRN Reason: Moderate Constipation Sodium Chloride (Ns Flush) 2 ml IV.FLUSH BID ISABELLE Last Admin: 08/29/18 09:35 Dose: 2 ml Sodium Chloride (Ns Flush) 2 ml IV.FLUSH PRN PRN PRN Reason: FLUSH AFTER USING IV ACCESS Allergies Allergy/AdvReac Type Severity Reaction Status Date / Time Sulfa (Sulfonamide Allergy Intermediate rash Verified 08/28/18 14:07 Antibiotics) Home Medications Medication Instructions Recorded Confirmed Type No Known Home Medications 08/28/18 08/28/18 History Exam Vital signs: Vital Signs 08/28/18 18:53 08/28/18 21:00 08/28/18 23:10 Temperature Pulse Rate 103 H 88 92 H Respiratory Rate 20 18 18 Blood Pressure 113/67 110/74 113/68 Pulse Oximetry 97 96 97 08/29/18 01:26 08/29/18 01:39 08/29/18 04:00 Temperature 98 F 97.3 F L Pulse Rate 90 106 H 100 H Respiratory Rate 18 20 20 Blood Pressure 110/66 130/64 124/68 Pulse Oximetry 97 96 98 08/29/18 08:00 08/29/18 12:00 08/29/18 16:00 Temperature 97.4 F L 97.8 F 98.7 F Pulse Rate 95 H 81 84 Respiratory Rate 22 21 Blood Pressure 119/64 133/60 Pulse Oximetry 99 100 97 Intake & Output 08/28/18 08/29/18 08/29/18 18:59 06:59 18:59 Intake Total 1200 / 1200 1400 / 1400 1340 / 1340 Output Total 320 / 320 Balance 1200 / 1200 1400 / 1400 1020 / 1020 Weight 61.4 kg 60.7 kg Intake: IV 1200 / 1200 1400 / 1400 1100 / 1100 Potassium Chlor 20 mEq/NACL 0. 500 / 500 45% Inj 1,000 ML @ 125 mls/hr IV.CONT .Q8H ISABELLE Rx#:[id number] NS + KCl 20 mEq Inj 1,000 ML @ 1000 / 1000 200 / 200 125 mls/hr IV.CONT .Q8H ISABELLE Rx# :[id number] NS Inj 1,000 ML @ 125 mls/hr IV 200 / 200 .CONT .Q8H ISABELLE Rx#:[id number] Magnesium Sulfate 1 gm/D5W 100 100 / 100 ml Premix 100 ML @ 100 mls/hr IV.SIG ONCE ONE Rx#:[id number] KCl 20 mEq Premix Inj 20 meq In 100 / 100 200 / 200 100 ml @ 50 mls/hr IV.SIG Q2H ISABELLE Rx#:[id number] NS Inj 1,000 ML @ Wide Open IV. 1000 / 1000 SIG BOLUS ONE Rx#:[id number] Rocephin Inj 1,000 MG In NS Inj 100 / 100 100 / 100 100 ML @ 200 mls/hr IV.SIG Q24H ISABELLE Rx#:[id number] Flagyl 500 MG Inj 100 ML @ 100 100 / 100 mls/hr IV.SIG Q6H ISABELLE Rx#: [id number] Oral 0 / 0 240 / 240 Output: Urine 320 / 320 Other: # Voids 1 Date of Last Bowel Movement 08/28/18 Weight On Admission 61.7 kg Narrative: GENERAL: Awake and alert. No acute distress. Cooperative. HEAD: Normocephalic. Atraumatic. EYES: Pupils equal round and reactive to light bilaterally. No scleral icterus. ENT: Moist oral mucosa. NG tube in place with dark bilious output. NECK: Trachea midline. CHEST: Nonlabored breathing.. No respiratory distress. CARDIOVASCULAR: Regular rate and rhythm. ABDOMEN: Moderate distention. Nontender. Well-healed lower midline scar. EXTREMITIES: No cyanosis or edema. SKIN: Warm, dry, nonjaundiced. Results - Labs 08/29/18 07:00 08/29/18 11:43 Laboratory Results - last 24 hr 08/28/18 08/28/18 08/28/18 16:00 20:18 20:18 CBC w Diff WBC RBC Hgb Hct MCV MCH MCHC RDW Plt Count MPV Neut % (Auto) Lymph % (Auto) [place] % (Auto) Eos % (Auto) Baso % (Auto) Neut # (Auto) Lymph # (Auto) [place] # (Auto) Eos # (Auto) Baso # (Auto) WBC Differential Differential Comment Sodium 120 L* Potassium 2.7 L* Chloride 84 L D Carbon Dioxide 26.0 Anion Gap 10 BUN 10 Creatinine 0.56 Estimated GFR Greater than 89 Random Glucose 129 H Calcium 7.2 L* Prot Corrected Calcium 7.7 L Phosphorus Magnesium 1.9 Total Bilirubin AST ALT Alkaline Phosphatase Total Protein 6.1 L D Albumin Urine Color Yellow Urine Clarity Clear Urine pH 6.0 Ur Specific [place] Less/equal 1.005 Urine Protein Negative Urine Glucose (UA) 100 H Urine Ketones Trace H Urine Occult Blood Trace Urine Nitrate Positive H Urine Bilirubin Negative Urine Urobilinogen 0.2 Ur Leukocyte Esterase Small H Urine WBC 6-8 H Ur Squamous Epith Cells 0-5 Urine Bacteria Many H Micro UA Comment Culture indicated Ur Microscopic Review Microscopic reviewed Urine Culture Comments Culture indicated 08/29/18 08/29/18 08/29/18 00:30 07:00 07:00 CBC w Diff Auto diff final WBC 8.2 D RBC 3.76 L Hgb 11.5 L D Hct 34.3 L MCV 91.3 MCH 30.7 MCHC 33.6 RDW 12.3 Plt Count 328 D MPV 6.6 L Neut % (Auto) 86.5 H Lymph % (Auto) 5.9 L [place] % (Auto) 6.2 Eos % (Auto) 1.2 Baso % (Auto) 0.2 Neut # (Auto) 7.1 Lymph # (Auto) 0.5 L [place] # (Auto) 0.5 Eos # (Auto) 0.1 Baso # (Auto) 0.0 WBC Differential . Differential Comment . Sodium 122 L* 125 L Potassium 2.9 L* 2.7 L* Chloride 88 L 90 L Carbon Dioxide 25.0 24.4 Anion Gap 9 11 BUN 9 9 Creatinine 0.49 L 0.40 L Estimated GFR Greater than 89 Greater than 89 Random Glucose 116 H 104 Calcium 7.4 L* 7.3 L* Prot Corrected Calcium 8.1 L 8.1 L Phosphorus Magnesium Total Bilirubin 0.4 AST 15 ALT 28 Alkaline Phosphatase 69 Total Protein 5.9 L 5.6 L Albumin 2.4 L D Urine Color Urine Clarity Urine pH Ur Specific [place] Urine Protein Urine Glucose (UA) Urine Ketones Urine Occult Blood Urine Nitrate Urine Bilirubin Urine Urobilinogen Ur Leukocyte Esterase Urine WBC Ur Squamous Epith Cells Urine Bacteria Micro UA Comment Ur Microscopic Review Urine Culture Comments 08/29/18 08/29/18 07:18 11:43 CBC w Diff WBC RBC Hgb Hct MCV MCH MCHC RDW Plt Count MPV Neut % (Auto) Lymph % (Auto) [place] % (Auto) Eos % (Auto) Baso % (Auto) Neut # (Auto) Lymph # (Auto) [place] # (Auto) Eos # (Auto) Baso # (Auto) WBC Differential Differential Comment Sodium Cancelled 125 L Potassium Cancelled 2.9 L* Chloride Cancelled 90 L Carbon Dioxide Cancelled 26.8 Anion Gap Cancelled 8 BUN Cancelled 9 Creatinine Cancelled 0.40 L Estimated GFR Cancelled Greater than 89 Random Glucose Cancelled 102 Calcium Cancelled 7.6 L Prot Corrected Calcium Phosphorus 1.6 L Magnesium 2.3 Total Bilirubin AST ALT Alkaline Phosphatase Total Protein Albumin Urine Color Urine Clarity Urine pH Ur Specific [place] Urine Protein Urine Glucose (UA) Urine Ketones Urine Occult Blood Urine Nitrate Urine Bilirubin Urine Urobilinogen Ur Leukocyte Esterase Urine WBC Ur Squamous Epith Cells Urine Bacteria Micro UA Comment Ur Microscopic Review Urine Culture Comments - Imaging Imaging: ITS Impressions Abdomen/Pelvis CT 08/28/18 15:21 CONCLUSION: 1. Abnormal bowel gas pattern of concern for distal small bowel obstruction. No transition zone is identified. 2. Mild to moderate diverticulosis. 3. Status post cholecystectomy. 4. Small simple cysts in the kidneys. Chest X-Ray 08/29/18 16:49 CONCLUSION: No acute cardiopulmonary disease. CT scan - abdomen: report reviewed, image reviewed CT scan - pelvis: report reviewed, image reviewed Assessment and Plan - Assessment (1) Enteritis Code(s): K52.9 - Noninfective gastroenteritis and colitis, unspecified Status : Acute (2) Small bowel obstruction Code(s): K56.609 - Unspecified intestinal obstruction, unspecified as to partial versus complete obstruction Status: Acute - Plan 68-year-old female with small bowel obstruction versus enteritis versus ileus due to another cause such as urinary tract infection. Recommend continue Rocephin and Flagyl. Continue NG tube to suction. Check small bowel follow-through.
[2018-08-29] MEDS: Desmopressin Inj 4 MCG/ML Ampul SQ SCH (19:28)
[2018-08-29 20:00] LABS: Chloride 92 meq/L (98-107); Potassium 3.5 meq/L (3.5-5.1); Sodium 125 meq/L (136-145)
[2018-08-29 20:03] LABS: Anion Gap 9 meq/L (5-15); Blood Urea Nitrogen 8 mg/dL (7-18); Calcium 7.6 mg/dL (8.5-10.1); Carbon Dioxide 24.4 meq/L (21.0-32.0); Glucose,Random 111 mg/dL (74-106)
[2018-08-29 20:07] LABS: Glomerular Filtration Rate Greater Than 89 mL/min (>89)
[2018-08-29] MEDS: Pantoprazole Inj 40 MG Vial IV.PUSH SCH (21:57)
[2018-08-30 00:28] LABS: Chloride 92 meq/L (98-107); Sodium 125 meq/L (136-145)
[2018-08-30] MEDS: Desmopressin Inj 4 MCG/ML Ampul SQ SCH (00:42)
[2018-08-30] MEDS: Morphine Sulfate Inj 2 MG/ML Vial IV.PUSH PRN ×3 (00:47→17:48)
[2018-08-30 01:51] LABS: Anion Gap 9 meq/L (5-15); Blood Urea Nitrogen 8 mg/dL (7-18); Calcium 7.1 mg/dL (8.5-10.1); Carbon Dioxide 24.5 meq/L (21.0-32.0); Glomerular Filtration Rate Greater Than 89 mL/min (>89); Glucose,Random 115 mg/dL (74-106); Potassium 3.7 meq/L (3.5-5.1)
[2018-08-30 03:06] LABS: Total Protein 5.7 g/dL (6.4-8.2)
[2018-08-30] MEDS: Potassium Chloride Inj 40 MEQ in Dextrose 5% in Water Inj 1,000 ML IV.CONT SCH ×4 (03:50→04:51)
[2018-08-30 08:07] LABS: Baso # (Auto) 0.1 th/mm3 (0.0-0.2); Baso % (Auto) 1.8 % (0.0-2.0); Eos # (Auto) 0.1 th/mm3 (0.0-0.4); Eos % (Auto) 1.5 % (0.0-4.0); Hematocrit 31.6 % (35.0-46.0); Hemoglobin 11.4 gm/dL (11.6-15.3); Lymph # (Auto) 0.6 th/mm3 (1.0-4.8); Mean Corpuscular HGB Conc 35.9 % (32.0-36.0); Mean Corpuscular Hemoglobin 31.7 pg (27.0-34.0); Mean Corpuscular Volume 88.3 fL (80.0-100.0); Mean Platelet Volume 6.5 fL (7.0-11.0); Mono # (Auto) 0.8 th/mm3 (0.0-0.9); Neut # (Auto) 6.4 th/mm3 (1.8-7.7); Neut % (Auto) 79.7 % (16.0-70.0); Platelet Count 332 th/mm3 (150-450); Red Blood Count 3.58 mil/mm3 (4.00-5.30); Red Cell Distribution Width 12.6 % (11.6-17.2)
[2018-08-30] MEDS: Sodium Chloride 0.9% 2 ML Flush BID IV.FLUSH SCH ×2 (08:20→20:24)
--- NOTE | 2018-08-30 08:31 | XR ---
EXAM DATE: 08/30/2018 8:21 AM EDT AGE/SEX: 68 years / Female INDICATIONS: Check nasogastric tube location. CLINICAL DATA: This is the patient's subsequent encounter. Patient reports that signs and symptoms h ave been present for 1 day and indicates a pain score of 5/10. MEDICAL/SURGICAL HISTORY: Hypertension. section. Cholecystectomy. COMPARISON: [facility], CHEST 1V SINGLE AP, 08/29/2018. . FINDINGS: Nasogastric tube is in the expected location of the proximal esophagus. I do not see an ET tube Minimal parenchymal changes right base with mild elevation right hemidiaphragm. Minimal parenchymal changes left base, nonspecific. Moderate gaseous distention of proximal small bowel. The diaphragm. CONCLUSION: Nasogastric tube is not across the GE junction. Tube appears to be the proximal esophagus. Electronically signed by: Can Troncoso MD 08/30/2018 8:30 AM EDT
--- NOTE | 2018-08-30 08:33 | P.PN ---
Subjective Interval history: Follow-up hyponatremia and possible SBO versus enteritis. Aggravated with NG tube. Repeat chest x-ray independently reviewed showed NGT tip in the chest area. Some red blood in the NG tube. Denies nausea, vomiting and abdominal pain. Passing gas but no BM. Discussed with nursing, discontinue NG tube. Output of 250 mL overnight Physical Exam Vital signs: Vital Signs 08/29/18 12:00 08/29/18 16:00 08/29/18 20:00 Temperature 97.8 F 98.7 F 97.6 F Pulse Rate 81 84 85 Respiratory Rate 21 20 Blood Pressure 133/60 121/78 Pulse Oximetry 100 97 98 08/30/18 00:00 08/30/18 04:00 Temperature 97.7 F 97.6 F Pulse Rate 87 84 Respiratory Rate 20 20 Blood Pressure 135/85 131/81 Pulse Oximetry 100 97 Intake & Output 08/29/18 08/30/18 08/30/18 18:59 06:59 18:59 Intake Total 1440 / 1440 1480 / 1480 Output Total 520 / 520 Balance 920 / 920 1480 / 1480 Weight 63 kg Intake: IV 1200 / 1200 1480 / 1480 Potassium Chlor 20 mEq/NACL 0. 500 / 500 45% Inj 1,000 ML @ 125 mls/hr IV.CONT .Q8H [facility] Rx#:[id number] NS + KCl 20 mEq Inj 1,000 ML @ 200 / 200 125 mls/hr IV.CONT .Q8H [facility] Rx# :[id number] KCl Inj 40 MEQ In D5W Inj 1,000 1020 / 1020 ML @ 100 mls/hr IV.CONT . [id number] [facility] Rx#:[id number] KCl 20 mEq Premix Inj 20 meq In 200 / 200 100 ml @ 50 mls/hr IV.SIG Q2H [facility] Rx#:[id number] Potassium Phosphate Inj 30 MMOL 260 / 260 In NS Inj 250 ML @ 43.333 mls/ hr IV.SIG ONCE ONE Rx#: [id number] Rocephin Inj 1,000 MG In NS Inj 100 / 100 100 ML @ 200 mls/hr IV.SIG Q24H [facility] Rx#:[id number] Flagyl 500 MG Inj 100 ML @ 100 200 / 200 200 / 200 mls/hr IV.SIG Q6H [facility] Rx#: [id number] Oral 240 / 240 0 / 0 Output: Urine 320 / 320 Gastric Drainage 200 / 200 Left Nare Nasogastric Tube 200 / 200 Other: # Voids 1 Date of Last Bowel Movement 08/28/18 Narrative: GENERAL: Awake and alert. No acute distress. Cooperative. CHEST: Nonlabored breathing. No respiratory distress. CARDIOVASCULAR: Regular rate and rhythm. ABDOMEN: Moderate distention. Nontender. Well-healed lower midline scar. EXTREMITIES: No cyanosis or edema. SKIN: Warm, dry, nonjaundiced. Results - Labs CBC & Chem 7: 08/30/18 07:42 08/29/18 19:30 Laboratory Results - last 24 hr 08/28/18 08/29/18 08/29/18 16:00 01:08 07:00 CBC w Diff WBC RBC Hgb Hct MCV MCH MCHC RDW Plt Count MPV Neut % (Auto) Lymph % (Auto) [place] % (Auto) Eos % (Auto) Baso % (Auto) Neut # (Auto) Lymph # (Auto) [place] # (Auto) Eos # (Auto) Baso # (Auto) WBC Differential Differential Comment Sodium 125 L 125 L Potassium 3.7 D 2.7 L* D Chloride 92 L 90 L Carbon Dioxide 24.5 24.4 Anion Gap 9 11 BUN 8 9 Creatinine 0.36 L 0.40 L Estimated GFR Greater than 89 Greater than 89 Random Glucose 115 H 104 Calcium 7.1 L* 7.3 L* Prot Corrected Calcium 7.8 L 8.1 L Phosphorus Magnesium Total Bilirubin 0.4 AST 15 ALT 28 Alkaline Phosphatase 69 Total Protein 5.7 L 5.6 L Albumin 2.4 L D Urine Color Yellow Urine Clarity Clear Urine pH 6.0 Ur Specific [place] Less/equal 1.005 Urine Protein Negative Urine Glucose (UA) 100 H Urine Ketones Trace H Urine Occult Blood Trace Urine Nitrate Positive H Urine Bilirubin Negative Urine Urobilinogen 0.2 Ur Leukocyte Esterase Small H Urine WBC 6-8 H Ur Squamous Epith Cells 0-5 Urine Bacteria Many H Micro UA Comment Culture indicated Ur Microscopic Review Microscopic reviewed Urine Culture Comments Culture indicated Ur Random Sodium 08/29/18 08/29/18 08/29/18 07:18 11:43 15:00 CBC w Diff WBC RBC Hgb Hct MCV MCH MCHC RDW Plt Count MPV Neut % (Auto) Lymph % (Auto) [place] % (Auto) Eos % (Auto) Baso % (Auto) Neut # (Auto) Lymph # (Auto) [place] # (Auto) Eos # (Auto) Baso # (Auto) WBC Differential Differential Comment Sodium Cancelled 125 L Potassium Cancelled 2.9 L* Chloride Cancelled 90 L Carbon Dioxide Cancelled 26.8 Anion Gap Cancelled 8 BUN Cancelled 9 Creatinine Cancelled 0.40 L Estimated GFR Cancelled Greater than 89 Random Glucose Cancelled 102 Calcium Cancelled 7.6 L Prot Corrected Calcium Phosphorus 1.6 L Magnesium 2.3 Total Bilirubin AST ALT Alkaline Phosphatase Total Protein Albumin Urine Color Urine Clarity Urine pH Ur Specific [place] Urine Protein Urine Glucose (UA) Urine Ketones Urine Occult Blood Urine Nitrate Urine Bilirubin Urine Urobilinogen Ur Leukocyte Esterase Urine WBC Ur Squamous Epith Cells Urine Bacteria Micro UA Comment Ur Microscopic Review Urine Culture Comments Ur Random Sodium 69 08/29/18 08/30/18 19:30 07:42 CBC w Diff Auto diff final WBC 8.0 RBC 3.58 L Hgb 11.4 L Hct 31.6 L MCV 88.3 MCH 31.7 MCHC 35.9 RDW 12.6 Plt Count 332 MPV 6.5 L Neut % (Auto) 79.7 H Lymph % (Auto) 7.0 L [place] % (Auto) 10.0 H Eos % (Auto) 1.5 Baso % (Auto) 1.8 Neut # (Auto) 6.4 Lymph # (Auto) 0.6 L [place] # (Auto) 0.8 Eos # (Auto) 0.1 Baso # (Auto) 0.1 WBC Differential . Differential Comment . Sodium 125 L Potassium 3.5 Chloride 92 L Carbon Dioxide 24.4 Anion Gap 9 BUN 8 Creatinine 0.41 L Estimated GFR Greater than 89 Random Glucose 111 H Calcium 7.6 L Prot Corrected Calcium Phosphorus Magnesium Total Bilirubin AST ALT Alkaline Phosphatase Total Protein Albumin Urine Color Urine Clarity Urine pH Ur Specific [place] Urine Protein Urine Glucose (UA) Urine Ketones Urine Occult Blood Urine Nitrate Urine Bilirubin Urine Urobilinogen Ur Leukocyte Esterase Urine WBC Ur Squamous Epith Cells Urine Bacteria Micro UA Comment Ur Microscopic Review Urine Culture Comments Ur Random Sodium Microbiology 08/28/18 16:00 Clean Catch Urine Urine Culture - Preliminary gram negative rods - Imaging Impressions Chest X-Ray 08/29/18 16:49 CONCLUSION: No acute cardiopulmonary disease. Assessment and Plan - Plan This is a 68-year-old female with a history of hypertension. She presented with nausea, vomiting, diarrhea and abdominal pain. CT scan showed distal SBO. Also with significant electrolyte abnormalities with sodium of 113 and potassium of 2.2. Distal SBO versus enteritis. Keep n.p.o. and fluid hydration. General surgery has been consulted for a small bowel follow-through today. GI prophylaxis with PPI. Continue Flagyl and follow-up stool studies patient has not had bowel movement since admission GIB from NGT irritation. Will monitor repeat blood counts Severe hyponatremia likely secondary to GI loss. It is improved pending BMP keep Na 125-130 in the next 24 hrs. Seizure precautions Severe hypokalemia also from GI loss. Magnesium within normal limits. Improving we will continue aggressive replacement pending labs. Monitor on telemetry. C UTI with sepsis. Continue Rocephin and follow cultures. DVT prophylaxis with SCD and early ambulation. Pharmacological prophylaxis if okay with general surgery
[2018-08-30 09:14] LABS: Anion Gap 9 meq/L (5-15); Blood Urea Nitrogen 7 mg/dL (7-18); Calcium 7.6 mg/dL (8.5-10.1); Carbon Dioxide 22.9 meq/L (21.0-32.0); Chloride 92 meq/L (98-107); Glomerular Filtration Rate Greater Than 89 mL/min (>89); Glucose,Random 111 mg/dL (74-106); Phosphorus 1.4 mg/dL (2.5-4.9); Potassium 3.5 meq/L (3.5-5.1)
[2018-08-30 09:20] LABS: Sodium 124 meq/L (136-145)
[2018-08-30] MEDS ORDERED: Diatrizoate Meglum/Diatrizoate Sod Liq 120 ML Bottle (for RAD diag) PO ONE (09:30)
[2018-08-30] MEDS ORDERED: Potassium Phosphate Inj 30 MMOL in Sodium Chlor 0.9% Inj 250 ML IV.SIG ONE (12:00)
--- NOTE | 2018-08-30 13:23 | P.PNGS ---
Subjective Interval history: She has no complaints. Has had part of small bowel series done. + belching, no nausea, + solid bm this am. Physical Exam Vital signs: Vital Signs 08/29/18 16:00 08/29/18 20:00 08/30/18 00:00 Temperature 98.7 F 97.6 F 97.7 F Pulse Rate 84 85 87 Respiratory Rate 20 20 Blood Pressure 133/60 121/78 135/85 Pulse Oximetry 97 98 100 08/30/18 04:00 08/30/18 08:00 08/30/18 12:00 Temperature 97.6 F 97.0 F L 97.6 F Pulse Rate 84 89 76 Respiratory Rate 20 17 17 Blood Pressure 131/81 134/83 138/86 Pulse Oximetry 97 99 100 Intake & Output 08/29/18 08/30/18 08/30/18 18:59 06:59 18:59 Intake Total 1440 / 1440 1480 / 1480 100 / 100 Output Total 520 / 520 Balance 920 / 920 1480 / 1480 100 / 100 Weight 63 kg Intake: IV 1200 / 1200 1480 / 1480 100 / 100 Potassium Chlor 20 mEq/NACL 0. 500 / 500 45% Inj 1,000 ML @ 125 mls/hr IV.CONT .Q8H [facility] Rx#:[id number] NS + KCl 20 mEq Inj 1,000 ML @ 200 / 200 125 mls/hr IV.CONT .Q8H [facility] Rx# :[id number] KCl Inj 40 MEQ In D5W Inj 1,000 1020 / 1020 ML @ 100 mls/hr IV.CONT . [id number] [facility] Rx#:[id number] KCl 20 mEq Premix Inj 20 meq In 200 / 200 100 ml @ 50 mls/hr IV.SIG Q2H [facility] Rx#:[id number] Potassium Phosphate Inj 30 MMOL 260 / 260 In NS Inj 250 ML @ 43.333 mls/ hr IV.SIG ONCE ONE Rx#: [id number] Rocephin Inj 1,000 MG In NS Inj 100 / 100 100 / 100 100 ML @ 200 mls/hr IV.SIG Q24H [facility] Rx#:[id number] Flagyl 500 MG Inj 100 ML @ 100 200 / 200 200 / 200 mls/hr IV.SIG Q6H [facility] Rx#: [id number] Oral 240 / 240 0 / 0 Output: Urine 320 / 320 Gastric Drainage 200 / 200 Left Nare Nasogastric Tube 200 / 200 Other: # Voids 1 Date of Last Bowel Movement 08/28/18 Narrative: NAD Abd: distended, mild left side ttp, no rebound or guarding. No NGT in place. Results - Labs 08/30/18 07:42 08/30/18 07:42 Laboratory Results - last 24 hr 08/28/18 08/29/18 08/29/18 16:00 01:08 07:00 CBC w Diff WBC RBC Hgb Hct MCV MCH MCHC RDW Plt Count MPV Neut % (Auto) Lymph % (Auto) [place] % (Auto) Eos % (Auto) Baso % (Auto) Neut # (Auto) Lymph # (Auto) [place] # (Auto) Eos # (Auto) Baso # (Auto) WBC Differential Differential Comment Sodium 125 L 125 L Potassium 3.7 D 2.7 L* D Chloride 92 L 90 L Carbon Dioxide 24.5 24.4 Anion Gap 9 11 BUN 8 9 Creatinine 0.36 L 0.40 L Estimated GFR Greater than 89 Greater than 89 Random Glucose 115 H 104 Calcium 7.1 L* 7.3 L* Prot Corrected Calcium 7.8 L 8.1 L Phosphorus Magnesium Total Bilirubin 0.4 AST 15 ALT 28 Alkaline Phosphatase 69 Total Protein 5.7 L 5.6 L Albumin 2.4 L D Urine Color Yellow Urine Clarity Clear Urine pH 6.0 Ur Specific [place] Less/equal 1.005 Urine Protein Negative Urine Glucose (UA) 100 H Urine Ketones Trace H Urine Occult Blood Trace Urine Nitrate Positive H Urine Bilirubin Negative Urine Urobilinogen 0.2 Ur Leukocyte Esterase Small H Urine WBC 6-8 H Ur Squamous Epith Cells 0-5 Urine Bacteria Many H Micro UA Comment Culture indicated Ur Microscopic Review Microscopic reviewed Urine Culture Comments Culture indicated Ur Random Sodium 08/29/18 08/29/18 08/30/18 15:00 19:30 07:42 CBC w Diff WBC RBC Hgb Hct MCV MCH MCHC RDW Plt Count MPV Neut % (Auto) Lymph % (Auto) [place] % (Auto) Eos % (Auto) Baso % (Auto) Neut # (Auto) Lymph # (Auto) [place] # (Auto) Eos # (Auto) Baso # (Auto) WBC Differential Differential Comment Sodium 125 L 124 L* Potassium 3.5 3.5 Chloride 92 L 92 L Carbon Dioxide 24.4 22.9 Anion Gap 9 9 BUN 8 7 Creatinine 0.41 L 0.38 L Estimated GFR Greater than 89 Greater than 89 Random Glucose 111 H 111 H Calcium 7.6 L 7.6 L Prot Corrected Calcium Phosphorus 1.4 L Magnesium 2.0 Total Bilirubin AST ALT Alkaline Phosphatase Total Protein Albumin Urine Color Urine Clarity Urine pH Ur Specific [place] Urine Protein Urine Glucose (UA) Urine Ketones Urine Occult Blood Urine Nitrate Urine Bilirubin Urine Urobilinogen Ur Leukocyte Esterase Urine WBC Ur Squamous Epith Cells Urine Bacteria Micro UA Comment Ur Microscopic Review Urine Culture Comments Ur Random Sodium 69 08/30/18 07:42 CBC w Diff Auto diff final WBC 8.0 RBC 3.58 L Hgb 11.4 L Hct 31.6 L MCV 88.3 MCH 31.7 MCHC 35.9 RDW 12.6 Plt Count 332 MPV 6.5 L Neut % (Auto) 79.7 H Lymph % (Auto) 7.0 L [place] % (Auto) 10.0 H Eos % (Auto) 1.5 Baso % (Auto) 1.8 Neut # (Auto) 6.4 Lymph # (Auto) 0.6 L [place] # (Auto) 0.8 Eos # (Auto) 0.1 Baso # (Auto) 0.1 WBC Differential . Differential Comment . Sodium Potassium Chloride Carbon Dioxide Anion Gap BUN Creatinine Estimated GFR Random Glucose Calcium Prot Corrected Calcium Phosphorus Magnesium Total Bilirubin AST ALT Alkaline Phosphatase Total Protein Albumin Urine Color Urine Clarity Urine pH Ur Specific [place] Urine Protein Urine Glucose (UA) Urine Ketones Urine Occult Blood Urine Nitrate Urine Bilirubin Urine Urobilinogen Ur Leukocyte Esterase Urine WBC Ur Squamous Epith Cells Urine Bacteria Micro UA Comment Ur Microscopic Review Urine Culture Comments Ur Random Sodium - Imaging Imaging: ITS Impressions Abdomen/Pelvis CT 08/28/18 15:21 CONCLUSION: 1. Abnormal bowel gas pattern of concern for distal small bowel obstruction. No transition zone is identified. 2. Mild to moderate diverticulosis. 3. Status post cholecystectomy. 4. Small simple cysts in the kidneys. Chest X-Ray 08/30/18 00:00 CONCLUSION: Nasogastric tube is not across the GE junction. Tube appears to be the proximal esophagus. Assessment and Plan - Assessment (1) Enteritis Code(s): K52.9 - Noninfective gastroenteritis and colitis, unspecified Status : Acute (2) Small bowel obstruction Code(s): K56.609 - Unspecified intestinal obstruction, unspecified as to partial versus complete obstruction Status: Acute - Plan 68-year-old female with small bowel obstruction versus enteritis versus ileus due to another cause such as urinary tract infection. Recommend continue Rocephin and Flagyl. Small bowel series pending. If contrast passes to colon ok to start clears. If not she needs NGT replaced.
[2018-08-30 17:24] LABS: Chloride 95 meq/L (98-107); Potassium 3.9 meq/L (3.5-5.1); Sodium 130 meq/L (136-145)
[2018-08-30 17:27] LABS: Anion Gap 11 meq/L (5-15); Blood Urea Nitrogen 9 mg/dL (7-18); Calcium 8.1 mg/dL (8.5-10.1); Carbon Dioxide 23.6 meq/L (21.0-32.0); Glucose,Random 132 mg/dL (74-106)
[2018-08-30 17:31] LABS: Glomerular Filtration Rate Greater Than 89 mL/min (>89)
--- NOTE | 2018-08-30 18:01 | FL ---
EXAM DATE: 08/30/2018 5:49 PM EDT AGE/SEX: 68 years / Female INDICATIONS: Abdominal cramping, diarrhea, nausea & vomiting x 1 week. Patient did say she had a bow el movement this morning. CLINICAL DATA: This is the patient's subsequent encounter. Patient reports that signs and symptoms h ave been present for 1 week and indicates a pain score of 6/10. MEDICAL/SURGICAL HISTORY: Hypertension. section. Cholecystectomy. COMPARISON: [facility], CT ABDOMEN & PELVIS W CONTRAST, 08/28/2018. . FLUORO TIME: 0 IMAGE COUNT: 18 CONTRAST: FINDINGS: Pouncer Machine view demonstrates abnormally dilated small bowel measuring up to 5.8 cm with possibly of coloni c gas. Prior CT demonstrated findings suggesting distal small bowel obstruction in the distal ileum. Contrast was administered orally and serial images were obtained to follow the contrast through the s mall bowel. Contrast slowly progresses within the dilated small bowel and at 4 hours did not reach th e colon but is within the distal small bowel. The 8 hour image demonstrates no significant progressio n over the 4 hour interval and contrast has not yet reached the colon. CONCLUSION: Persistent abnormally dilated small bowel and the contrast did not reach the colon by 8 hours. These findings along with the findings on recent CT are characteristic of the distal small bowel obstructio n. One could consider obtaining additional follow-up x-ray tomorrow morning to evaluate for progressi on of contrast into the colon. Electronically signed by: Rivas Ramirez MD 08/30/2018 6:00 PM EDT
[2018-08-30] MEDS: Pantoprazole Inj 40 MG Vial IV.PUSH SCH (22:10)
[2018-08-31 00:08] LABS: Chloride 97 meq/L (98-107); Sodium 134 meq/L (136-145)
[2018-08-31 00:11] LABS: Anion Gap 14 meq/L (5-15); Blood Urea Nitrogen 9 mg/dL (7-18); Calcium 8.2 mg/dL (8.5-10.1); Carbon Dioxide 23.4 meq/L (21.0-32.0); Glucose,Random 131 mg/dL (74-106)
[2018-08-31 00:14] LABS: Potassium 4.1 meq/L (3.5-5.1)
[2018-08-31 00:15] LABS: Glomerular Filtration Rate Greater Than 89 mL/min (>89)
[2018-08-31] MEDS ORDERED: KCL 20 mEq/NACL 0.45% Inj 1,000 ML IV.CONT SCH (01:30)
[2018-08-31] MEDS: Desmopressin Inj 4 MCG/ML Ampul SQ SCH (06:52)
[2018-08-31 08:09] LABS: Baso # (Auto) 0.1 th/mm3 (0.0-0.2); Baso % (Auto) 1.3 % (0.0-2.0); Eos % (Auto) 0.3 % (0.0-4.0); Hematocrit 35.3 % (35.0-46.0); Hemoglobin 12.2 gm/dL (11.6-15.3); Lymph # (Auto) 0.4 th/mm3 (1.0-4.8); Lymph % (Auto) 4.9 % (9.0-44.0); Mean Corpuscular HGB Conc 34.5 % (32.0-36.0); Mean Corpuscular Hemoglobin 30.7 pg (27.0-34.0); Mean Corpuscular Volume 89.1 fL (80.0-100.0); Mean Platelet Volume 6.8 fL (7.0-11.0); Mono # (Auto) 0.7 th/mm3 (0.0-0.9); Neut # (Auto) 7.4 th/mm3 (1.8-7.7); Neut % (Auto) 85.5 % (16.0-70.0); Platelet Count 356 th/mm3 (150-450); Red Blood Count 3.96 mil/mm3 (4.00-5.30); Red Cell Distribution Width 12.8 % (11.6-17.2); White Blood Count 8.6 th/mm3 (4.0-11.0)
[2018-08-31] MEDS: Sodium Chloride 0.9% 2 ML Flush BID IV.FLUSH SCH ×2 (08:19→21:04)
[2018-08-31 08:21] LABS: Chloride 100 meq/L (98-107); Potassium 3.6 meq/L (3.5-5.1); Sodium 135 meq/L (136-145)
[2018-08-31 08:23] LABS: Calcium 8.1 mg/dL (8.5-10.1)
[2018-08-31 08:24] LABS: Anion Gap 15 meq/L (5-15); Blood Urea Nitrogen 10 mg/dL (7-18); Carbon Dioxide 20.5 meq/L (21.0-32.0); Glucose,Random 126 mg/dL (74-106)
[2018-08-31 08:27] LABS: Glomerular Filtration Rate Greater Than 89 mL/min (>89); Phosphorus 2.3 mg/dL (2.5-4.9)
--- NOTE | 2018-08-31 08:37 | XR ---
EXAM DATE: 08/31/2018 8:31 AM EDT AGE/SEX: 68 years / Female INDICATIONS: Small bowel obstruction CLINICAL DATA: This is the patient's subsequent encounter. Patient reports that signs and symptoms h ave been present for 1 week and indicates a pain score of 0/10. MEDICAL/SURGICAL HISTORY: . Hypertension. . section. Cholecystectomy COMPARISON: [facility], SMALL BOWEL W GASTROGRAFIN, 08/30/2018. . FINDINGS: Supine and upright views of the abdomen. Contrast is seen within the colon with the majority of the c ontrast in the ascending colon. Small amount of contrast is seen in the sigmoid colon. Dilated air-fi lled loops of small bowel again seen measuring up to 5 cm in diameter. This is decreased from approxi mately 6 cm in diameter seen on recent small bowel series. CONCLUSION: 1. Further progression of contrast into the colon. 2. Slight decrease in the degree of air-filled dilatation of small bowel loops. Findings suggest ile us or partial small bowel obstruction. Electronically signed by: Joon Cho MD 08/31/2018 8:35 AM EDT
--- NOTE | 2018-08-31 11:15 | P.PN ---
Subjective Interval history: Follow-up SBO. Been having loose stools since yesterday denies nausea and abdominal pain. Abdominal x-ray shows contrast in the colon Physical Exam Vital signs: Vital Signs 08/30/18 12:00 08/30/18 16:00 08/30/18 20:00 Temperature 97.6 F 97.8 F 96.0 F L Pulse Rate 76 84 91 H Respiratory Rate 17 17 20 Blood Pressure 138/86 171/100 H 189/85 H Pulse Oximetry 100 100 97 08/31/18 00:00 08/31/18 08:00 Temperature 96.2 F L 97.3 F L Pulse Rate 116 H 103 H Respiratory Rate 20 20 Blood Pressure 139/90 169/83 H Pulse Oximetry 96 100 Intake & Output 08/30/18 08/31/18 08/31/18 18:59 06:59 18:59 Intake Total 560 / 560 2200 / 2200 650 / 650 Balance 560 / 560 2200 / 2200 650 / 650 Weight 63.5 kg Intake: IV 560 / 560 2200 / 2200 650 / 650 Potassium Chlor 20 mEq/NACL 0. 450 / 450 45% Inj 1,000 ML @ 60 mls/hr IV .CONT .[id number] [facility] Rx#: [id number] NS + KCl 20 mEq Inj 1,000 ML @ 1000 / 1000 60 mls/hr IV.CONT .[id number] [facility] Rx#:[id number] KCl Inj 40 MEQ In D5W Inj 1,000 0 / 0 ML @ 100 mls/hr IV.CONT . [id number] [facility] Rx#:[id number] Potassium Phosphate Inj 30 MMOL 260 / 260 In NS Inj 250 ML @ 43.333 mls/ hr IV.SIG ONCE ONE Rx#: [id number] Rocephin Inj 1,000 MG In NS Inj 100 / 100 100 / 100 100 ML @ 200 mls/hr IV.SIG Q24H [facility] Rx#:[id number] Flagyl 500 MG Inj 100 ML @ 100 200 / 200 200 / 200 100 / 100 mls/hr IV.SIG Q6H [facility] Rx#: [id number] Oral 0 / 0 Other: # Voids 5 Date of Last Bowel Movement 08/30/18 08/30/18 # Bowel Movements 5 # [place] 1 Narrative: GENERAL: Well-developed well-nourished in no distress SKIN: Warm and dry. CARDIOVASCULAR: Regular rate and rhythm. RESPIRATORY: No accessory muscle use. Clear to auscultation. Breath sounds equal bilaterally. GASTROINTESTINAL: Abdomen soft, non-tender, nondistended. MUSCULOSKELETAL: Extremities without clubbing, cyanosis, or edema. No obvious deformities. NEUROLOGICAL: Awake and alert. No obvious cranial nerve deficits. Motor grossly within normal limits. Five out of 5 muscle strength in the arms and legs. Normal speech. PSYCHIATRIC: Appropriate mood and affect; insight and judgment normal. Results - Labs CBC & Chem 7: 08/31/18 07:48 08/31/18 07:48 Laboratory Results - last 24 hr 08/29/18 08/30/18 08/30/18 09:15 17:00 23:43 CBC w Diff WBC RBC Hgb Hct MCV MCH MCHC RDW Plt Count MPV Neut % (Auto) Lymph % (Auto) [place] % (Auto) Eos % (Auto) Baso % (Auto) Neut # (Auto) Lymph # (Auto) [place] # (Auto) Eos # (Auto) Baso # (Auto) WBC Differential Differential Comment Sodium 130 L 134 L Potassium 3.9 4.1 Chloride 95 L 97 L Carbon Dioxide 23.6 23.4 Anion Gap 11 14 BUN 9 9 Creatinine 0.42 L 0.49 L Estimated GFR Greater than 89 Greater than 89 Random Glucose 132 H 131 H Calcium 8.1 L 8.2 L Phosphorus Magnesium Stl C.difficile DNA Amp Negative St C. diff Tox Epid 027 Negative 08/31/18 08/31/18 08/31/18 07:48 07:48 07:48 CBC w Diff Auto diff final WBC 8.6 RBC 3.96 L Hgb 12.2 Hct 35.3 MCV 89.1 MCH 30.7 MCHC 34.5 RDW 12.8 Plt Count 356 MPV 6.8 L Neut % (Auto) 85.5 H Lymph % (Auto) 4.9 L [place] % (Auto) 8.0 Eos % (Auto) 0.3 Baso % (Auto) 1.3 Neut # (Auto) 7.4 Lymph # (Auto) 0.4 L [place] # (Auto) 0.7 Eos # (Auto) 0.0 Baso # (Auto) 0.1 WBC Differential . Differential Comment . Sodium 135 L Potassium 3.6 Chloride 100 Carbon Dioxide 20.5 L Anion Gap 15 BUN 10 Creatinine 0.42 L Estimated GFR Greater than 89 Random Glucose 126 H Calcium 8.1 L Phosphorus 2.3 L Magnesium 2.0 Stl C.difficile DNA Amp St C. diff Tox Epid 027 08/31/18 08/31/18 07:48 07:48 CBC w Diff WBC RBC Hgb Hct MCV MCH MCHC RDW Plt Count MPV Neut % (Auto) Lymph % (Auto) [place] % (Auto) Eos % (Auto) Baso % (Auto) Neut # (Auto) Lymph # (Auto) [place] # (Auto) Eos # (Auto) Baso # (Auto) WBC Differential Differential Comment Sodium Potassium Chloride Carbon Dioxide Anion Gap BUN Creatinine Estimated GFR Random Glucose Calcium Phosphorus 2.4 L Magnesium 2.0 Stl C.difficile DNA Amp St C. diff Tox Epid 027 Microbiology 08/30/18 09:15 Stool Enteric Pathogens (PCR) - Final No enteric pathogens detected by PCR (No Salmonella sp., Shigella sp., Campylobacter sp., Yersinia enterocolitica, Vibrio sp., Norovirus, or EHEC (Shiga Toxin 1 or Shiga Toxin 2) detected. 08/28/18 16:00 Clean Catch Urine Urine Culture - Final Enterobacter cloacae - Imaging Impressions Small Bowel X-Ray 08/30/18 00:00 CONCLUSION: Persistent abnormally dilated small bowel and the contrast did not reach the colon by 8 hours. These findings along with the findings on recent CT are characteristic of the distal small bowel obstruction. One could consider obtaining additional follow-up x-ray tomorrow morning to evaluate for progression of contrast into the colon. Abdomen X-Ray 08/31/18 08:00 CONCLUSION: 1. Further progression of contrast into the colon. 2. Slight decrease in the degree of air-filled dilatation of small bowel loops. Findings suggest ileus or partial small bowel obstruction. - Procedures none Assessment and Plan - Plan This is a 68-year-old female with a history of hypertension. She presented with nausea, vomiting, diarrhea and abdominal pain. CT scan showed distal SBO. Also with significant electrolyte abnormalities with sodium of 113 and potassium of 2.2. Distal SBO versus enteritis. Follow-up KUB shows contrast in the colon. Patient having frequent loose stools. Start liquid diet advance as tolerated. Continue Flagyl and follow-up stool studies negative to date GIB from NGT irritation. Resolved. Will monitor repeat blood counts Severe hyponatremia likely secondary to GI loss. Resolving. Seizure precautions Severe hypokalemia also from GI loss. Magnesium within normal limits. Resolved. Monitor on telemetry. UTI with sepsis. Culture with Enterobacter [place] sensitive to Rocephin. DVT prophylaxis with SCD and early ambulation. Pharmacological prophylaxis if okay with general surgery Discharge Planning: Discharge in the next 24 hours
[2018-08-31] MEDS: Potassium Phosphate 500 MG Soluble Tablet PO SCH ×2 (15:37→21:51)
[2018-08-31] MEDS: Ciprofloxacin 250 MG Tablet PO SCH (21:51)
[2018-09-01 08:17] LABS: Anion Gap 10 meq/L (5-15); Blood Urea Nitrogen 6 mg/dL (7-18); Calcium 7.7 mg/dL (8.5-10.1); Carbon Dioxide 25.5 meq/L (21.0-32.0); Chloride 99 meq/L (98-107); Glomerular Filtration Rate Greater Than 89 mL/min (>89); Glucose,Random 99 mg/dL (74-106); Magnesium 1.7 mg/dL (1.5-2.5); Phosphorus 1.8 mg/dL (2.5-4.9); Sodium 134 meq/L (136-145)
[2018-09-01] MEDS ORDERED: Potassium Bicarbonate 25 MEQ Effervescent Tablet PO ONE (09:00)
[2018-09-01] MEDS ORDERED: Lisinopril 10 MG Tablet PO SCH (09:00)
[2018-09-01] MEDS: Ciprofloxacin 250 MG Tablet PO SCH (09:02)
[2018-09-01] MEDS: Potassium Phosphate 500 MG Soluble Tablet PO SCH (09:08)
--- NOTE | 2018-09-01 09:13 | P.DS ---
Date of admission: 08/28/18 19:52 Primary care physician: No Primary Care Physician Brief History from admission: This is a 68-year-old female with a history of hypertension. She takes half of her 's medication which she cannot recall the name. Anyway she came to the emergency department because of GI symptoms for 1 week. She reports of nausea, vomiting and crampy abdominal pain associated with nonbloody and nonmucoid stools. Denies sick contacts, recent antibiotic use, well water and seafood ingestion. No fever or chills. In the emergency room. CT scan showed distal SBO. Sodium was also severely low at 113 and a potassium of 2.2. Overnight she received NS infusion and potassium supplementation. Current sodium level is 125 and potassium of 2.7. All other systems reviewed negative DS: Medications - Discharge Medications Prescriptions: acidophilus-sporogenes [Acidophilus Ex Str (L. sporog)] 1 tab PO TID #30 tab ciprofloxacin HCl 250 mg PO Q12HR #6 tab metronidazole 500 mg PO Q8HR #9 tab potassium chloride [Klor-Con 10] 20 meq PO DAILY #2 tab potassium phosphate, monobasic [K-Phos Original] 500 mg PO BID #4 tab DS: Summary Hospital Course: This is a 68-year-old female with a history of hypertension. She presented with nausea, vomiting, diarrhea and abdominal pain. CT scan showed distal SBO. Also with significant electrolyte abnormalities with sodium of 113 and potassium of 2.2. Distal SBO versus enteritis. Follow-up KUB shows contrast in the colon. Resolved tolerating diet. Stools are firming up. Continue Flagyl and follow- up stool studies negative to date GIB from NGT irritation. Resolved. Will monitor repeat blood counts Severe hyponatremia likely secondary to GI loss. Resolving. Seizure precautions Severe hypokalemia also from GI loss. Magnesium within normal limits. Continue supplementation. Monitor on telemetry. UTI with sepsis. Culture with Enterobacter Basehor sensitive to Rocephin switch to Cipro. Hypertension, not controlled restart lisinopril. Asymptomatic continue to monitor. DVT prophylaxis with SCD and early ambulation. - Time Spent with Patient Total time spent providing and/or coordinating discharge services: Greater than 30 minutes - Quality: VTE Deep Vein Thrombosis/Pulmonary Embolism Present on Admission: No Exam Vital signs: Vital Signs 08/31/18 12:00 08/31/18 15:46 08/31/18 20:00 Temperature 96.8 F L 98.1 F 96.8 F L Pulse Rate 98 H 93 H 96 H Respiratory Rate 20 20 20 Blood Pressure 167/78 H 139/67 165/78 H Pulse Oximetry 99 97 99 08/31/18 23:54 09/01/18 08:00 Temperature 96.9 F L 97.6 F Pulse Rate 94 H 109 H Respiratory Rate 20 17 Blood Pressure 179/86 H 176/98 H Pulse Oximetry 97 97 Intake & Output 08/31/18 09/01/18 09/01/18 19:59 06:59 18:59 Intake Total Balance Weight Intake: IV Potassium Chlor 20 mEq/NACL 0. 45% Inj 1,000 ML @ 60 mls/hr IV .CONT .[id number] [facility] Rx#: [id number] Rocephin Inj 1,000 MG In NS Inj 100 ML @ 200 mls/hr IV.SIG Q24H [facility] Rx#:[id number] Flagyl 500 MG Inj 100 ML @ 100 mls/hr IV.SIG Q6H [facility] Rx#: [id number] Oral Other: # Voids Date of Last Bowel Movement # Bowel Movements Narrative: GENERAL: Well-developed well-nourished in no distress SKIN: Warm and dry. CARDIOVASCULAR: Regular rate and rhythm. RESPIRATORY: No accessory muscle use. Clear to auscultation. Breath sounds equal bilaterally. GASTROINTESTINAL: Abdomen soft, non-tender, nondistended. MUSCULOSKELETAL: Extremities without clubbing, cyanosis, or edema. No obvious deformities. NEUROLOGICAL: Awake and alert. No obvious cranial nerve deficits. Motor grossly within normal limits. Five out of 5 muscle strength in the arms and legs. Normal speech. PSYCHIATRIC: Appropriate mood and affect; insight and judgment normal. Results Procedures completed during hospitalization: none Labs on day of discharge: Labs from last 24 hours 09/01/18 07:21 Sodium 134 L Potassium 3.0 L Chloride 99 Carbon Dioxide 25.5 Anion Gap 10 BUN 6 L Creatinine 0.44 L Estimated GFR Greater than 89 Random Glucose 99 Calcium 7.7 L Phosphorus 1.8 L Magnesium 1.7 - Impressions ITS Impressions Abdomen/Pelvis CT 08/28/18 15:21 CONCLUSION: 1. Abnormal bowel gas pattern of concern for distal small bowel obstruction. No transition zone is identified. 2. Mild to moderate diverticulosis. 3. Status post cholecystectomy. 4. Small simple cysts in the kidneys. Chest X-Ray 08/30/18 00:00 CONCLUSION: Nasogastric tube is not across the GE junction. Tube appears to be the proximal esophagus. Small Bowel X-Ray 08/30/18 00:00 CONCLUSION: Persistent abnormally dilated small bowel and the contrast did not reach the colon by 8 hours. These findings along with the findings on recent CT are characteristic of the distal small bowel obstruction. One could consider obtaining additional follow-up x-ray tomorrow morning to evaluate for progression of contrast into the colon. Abdomen X-Ray 08/31/18 08:00 CONCLUSION: 1. Further progression of contrast into the colon. 2. Slight decrease in the degree of air-filled dilatation of small bowel loops. Findings suggest ileus or partial small bowel obstruction. Discharge Plan - Discharge Disposition Patient Disposition: 01 Discharge Home - Discharge Condition Condition: Stable - Discharge Order Discharge Orders: Discharge Order (Routine); Ordered 09/01/18 Ordered By: Kevan Ashby - Physicians Team Primary Care Provider: Primary Care Shagufta Williamson Attending Provider: Kevan Ashby Other Providers: Elias Car MD
[2018-09-01] MEDS: Sodium Chloride 0.9% 2 ML Flush BID IV.FLUSH SCH (09:49)
[2018-09-01] MEDS ORDERED: Lactobacillus Acidophilus/L. Spores Tablet PO SCH (13:00)
[2018-09-01] MEDS ORDERED: metroNIDAZOLE 500 MG Tablet PO SCH (14:00)
== END 2018-09-01 10:52 | disposition home or self-care (01) ==
LOC: PHED 14:03 → PHEDA 19:52 → PH3 08-29 01:06
PROVIDERS: ADMIT Internal Medicine; ATTEND Internal Medicine